=== PATIENT | male | born 1950 | race Caucasian/White ===

== ENCOUNTER → 2016-10-05 | Outpatient (CLI) | payer OTHER ==
[~2016-10-05] MED LIST: ASPI81 PO; ATOR1TAB18 PO; ATOR80TA41 PO; CARV3.125 PO; GLUC750T22 PO; LORTA5 PO; PANT40IN3 PO; PANT40TA3 PO; VITA100017 PO; ZOFR4TAB3 SL
[2016-10-05 09:04] LABS: ALKALINE PHOSPHATASE 50 U/L (45-117); ALT (GPT) 41 U/L (12-78); ANION GAP 5 MEQ/L (5-15); AST (GOT) 21 U/L (15-37); BICARBONATE 28.9 MEQ/L (21.0-32.0); BLOOD UREA NITROGEN 16 MG/DL (7-18); CHLORIDE 105 MEQ/L (98-107); GLOMERULAR FILTRATION RATE 83 ML/MIN (>89); GLUCOSE,FASTING 91 MG/DL (74-99); HDL CHOLESTEROL 52.4 MG/DL (40.0-60.0); LDL CHOLESTEROL 71 MG/DL (0-99); POTASSIUM 4.9 MEQ/L (3.5-5.1); SODIUM (NA) 139 MEQ/L (136-145); TOTAL BILIRUBIN ADULT 0.7 MG/DL (0.2-1.0)
== END ==
LOC: CLAB 08:14
PROVIDERS: ATTEND Internal Medicine Interventional Cardiology
DX: E78.2 Mixed hyperlipidemia (principal); I10 Essential (primary) hypertension; D68.8 Other specified coagulation defects
CPT/HCPCS: 36415; 80053; 80061

== ENCOUNTER 2016-11-18 13:07 | Inpatient (IN) | payer OTHER ==
[2016-11-18] VITALS (14 sets, daily range): BP systolic 77–122; BP diastolic 44–66; PULSE 63–103; RESP 12–18; TEMP 97.4–98.6; O2SAT 92–98
[~2016-11-18] VITALS: Ht 190.5 cm; Wt 102.8 kg
[~2016-11-18 13:07] MED LIST changes: -ATOR1TAB18 PO; -PANT40TA3 PO
[2016-11-18] MEDS ORDERED: PANTOPRAZOLE SODIUM 40 MG VIAL IV PUSH ONE (13:30)
[2016-11-18] MEDS ORDERED: SODIUM CHLOR 0.9% 1000 ML INJ 1,000 ML IV ONE ×3 (13:30→14:15)
[2016-11-18] MEDS ORDERED: ONDANSETRON HCL 4 MG/2 ML VIAL IV ONE (13:30)
[2016-11-18] MEDS ORDERED: PANT40TA3 PO (13:35)
[2016-11-18] MEDS ORDERED: ATOR1TAB18 PO (13:35)
--- NOTE | 2016-11-18 13:37 | PD ---
HPI Chief Complaint: General Weakness Time Seen by Provider: 13:17 Travel History International Travel<30 days: No Contact w/Intl Traveler<30days: No Traveled to known affect area: No History of Present Illness HPI The patient is a 65-year-old male who presents emergency department for nausea, vomiting, generalized weakness since yesterday. The patient did have some nausea yesterday with increasing generalized weakness, then had vomiting this morning. The patient's last episode of vomiting did have some what appeared to be coffee-ground emesis, according to the family. The patient does have a history of similar symptoms in the past secondary to viral infections. The patient also break out in a rash, uric area, and took oral Benadryl prior to arrival. The patient has been evaluated by an revenue enforcement collection agent/ clay house worker in the past for his urticaria, there is no known cause. The patient does complain of lightheadedness, dizziness worse with sitting upright, and generalized weakness. He denies any new congestion, cough, diarrhea, or abdominal pain. The patient did not receive an influenza vaccination this year. He does complain of generalized weakness, but denies any specific myalgias or arthralgias. The patient's primary physician is Dr. Jeramy Kumar. [facility] Past Medical History Cancer: Yes (basal cell from back) Cardiovascular Problems: Yes Chest Pain: Yes (STENT PUT IN AUGUST 2014) Gastrointestinal Disorders: Yes Genitourinary: No Hiatal Hernia: Yes Musculoskeletal: No Neurologic: No Reproductive: No Respiratory: No Past Surgical History Abdominal Surgery: Yes (DOUBLE hernia repair.) Coronary Stent: Yes Joint Replacement: Yes (l elbow 2 plates and mechanical joint 2006) Other Surgery: Yes (bone spurs r elbow; hernia 2002, SPOTS REMOVED FROM SKIN CANCER ) Social History Alcohol Use: No Tobacco Use: No Substance Use: No Allergies-Medications (Allergen,Severity, Reaction): Coded Allergies: Latex (Unverified Allergy, Severe, Anaphylaxis, 11/18/16) Vicodin (Unverified Allergy, Severe, Hives, 11/18/16) Reported Meds & Prescriptions Reported Meds & Active Scripts Active Reported Pantoprazole (Pantoprazole Sodium) 40 Mg Tab 40 Mg PO DAILY Atorvastatin (Atorvastatin Calcium) 80 Mg Tab 80 Mg PO HS Review of Systems Except as stated in HPI: all other systems reviewed are Neg General / Constitutional: No: Fever HENT: Positive: Lightheadedness, No: Congestion Cardiovascular: No: Chest Pain or Discomfort Respiratory: No: Shortness of Breath Gastrointestinal: Positive: Nausea, Vomiting, Other (coffee-ground emesis according to the ), No: Diarrhea, Abdominal Pain Genitourinary: No: Dysuria Musculoskeletal: Positive: Weakness, No: Myalgias, Arthralgias Neurologic: Positive: Weakness, Dizziness, No: Change in Mentation Physical Exam Narrative GENERAL: Awake, alert, pleasant 65-year-old male who appears his stated age and is in no acute respiratory distress. SKIN: Slightly pale appearance to the face. Patient does have blanching urticaria on the lower extremities and back HEAD: Atraumatic. Normocephalic. EYES: Pupils equal and round. No scleral icterus. No injection or drainage. ENT: No nasal bleeding or discharge. Dry mucous membranes. NECK: Trachea midline. No JVD. CARDIOVASCULAR: Regular rate and rhythm. No murmur appreciated. Heart rate in the 90s. RESPIRATORY: No accessory muscle use. Clear to auscultation. Breath sounds equal bilaterally. GASTROINTESTINAL: Abdomen soft, non-tender, nondistended. No rebound tenderness. MUSCULOSKELETAL: No obvious deformities. No clubbing. No cyanosis. No edema. NEUROLOGICAL: Awake and alert. No obvious cranial nerve deficits. Motor grossly within normal limits. Normal speech. Nonfocal. PSYCHIATRIC: Appropriate mood and affect; insight and judgment normal. Data Data Last Documented VS Vital Signs Date Time Temp Pulse Resp B/P Pulse Ox O2 Delivery O2 Flow Rate FiO2 11/18/16 14:11 97.9 80 16 92/57 94 Nasal Cannula 2 Orders Electrocardiogram (11/18/16 13:25) Complete Blood Count With Diff (11/18/16 13:25) Comprehensive Metabolic Panel (11/18/16 13:25) Lactic Acid Sepsis Protocol (11/18/16 13:25) Magnesium (Mg) (11/18/16 13:25) Lipase (11/18/16 13:25) Ckmb (Isoenzyme) Profile (11/18/16 13:25) Troponin I (11/18/16 13:25) Urinalysis - C+S If Indicated (11/18/16 13:25) Influenzae A/B Antigen (11/18/16 13:25) Blood Culture (11/18/16 13:25) Chest, Single Ap (11/18/16 13:25) Blood Glucose (11/18/16 13:25) Ecg Monitoring (11/18/16 13:25) Iv Access Insert/Monitor (11/18/16 13:25) Oximetry (11/18/16 13:25) Oxygen Administration (11/18/16 13:25) Ondansetron Inj (Zofran Inj) (11/18/16 13:30) Sodium Chlor 0.9% 1000 Ml Inj (Ns 1000 M (11/18/16 13:30) Sodium Chlor 0.9% 1000 Ml Inj (Ns 1000 M (11/18/16 13:30) Pantoprazole Inj (Protonix Inj) (11/18/16 13:30) Type And Screen (11/18/16 13:25) CKMB (11/18/16 13:15) CKMB% (11/18/16 13:15) Sodium Chlor 0.9% 1000 Ml Inj (Ns 1000 M (11/18/16 14:15) Diphenhydramine Inj (Benadryl Inj) (11/18/16 14:15) Labs Laboratory Tests Test 11/18/16 13:15 White Blood Count 15.6 TH/MM3 Red Blood Count 6.77 MIL/MM3 Hemoglobin 20.2 GM/DL Hematocrit 60.9 % Mean Corpuscular Volume 89.9 FL Mean Corpuscular Hemoglobin 29.9 PG Mean Corpuscular Hemoglobin 33.2 % Concent Red Cell Distribution Width 13.4 % Platelet Count 253 TH/MM3 Mean Platelet Volume 9.8 FL Neutrophils (%) (Auto) 88.5 % Lymphocytes (%) (Auto) 9.8 % Monocytes (%) (Auto) 1.5 % Eosinophils (%) (Auto) 0.1 % Basophils (%) (Auto) 0.1 % Neutrophils # (Auto) 13.9 TH/MM3 Lymphocytes # (Auto) 1.5 TH/MM3 Monocytes # (Auto) 0.2 TH/MM3 Eosinophils # (Auto) 0.0 TH/MM3 Basophils # (Auto) 0.0 TH/MM3 CBC Comment DIFF FINAL Differential Comment Sodium Level 139 MEQ/L Potassium Level 4.6 MEQ/L Chloride Level 102 MEQ/L Carbon Dioxide Level 21.0 MEQ/L Anion Gap 16 MEQ/L Blood Urea Nitrogen 26 MG/DL Creatinine 3.50 MG/DL Estimat Glomerular Filtration 18 ML/MIN Rate Random Glucose 150 MG/DL Calcium Level 8.7 MG/DL Magnesium Level 2.1 MG/DL Total Bilirubin 1.7 MG/DL Aspartate Amino Transf 22 U/L (AST/SGOT) Alanine Aminotransferase 30 U/L (ALT/SGPT) Alkaline Phosphatase 42 U/L Total Creatine Kinase 185 U/L Troponin I 0.10 NG/ML Total Protein 6.7 GM/DL Albumin 3.2 GM/DL Lipase 85 U/L [facility] Medical Decision Making Medical Screen Exam Complete: Yes Emergency Medical Condition: Yes Medical Record Reviewed: Yes Interpretation(s) EKG reveals normal sinus rhythm with a rate in 96. Low QRS precordial leads. Chest x-ray reveals no acute cardiopulmonary disease Laboratory Tests Test 11/18/16 13:15 White Blood Count 15.6 TH/MM3 Red Blood Count 6.77 MIL/MM3 Hemoglobin 20.2 GM/DL Hematocrit 60.9 % Mean Corpuscular Volume 89.9 FL Mean Corpuscular Hemoglobin 29.9 PG Mean Corpuscular Hemoglobin 33.2 % Concent Red Cell Distribution Width 13.4 % Platelet Count 253 TH/MM3 Mean Platelet Volume 9.8 FL Neutrophils (%) (Auto) 88.5 % Lymphocytes (%) (Auto) 9.8 % Monocytes (%) (Auto) 1.5 % Eosinophils (%) (Auto) 0.1 % Basophils (%) (Auto) 0.1 % Neutrophils # (Auto) 13.9 TH/MM3 Lymphocytes # (Auto) 1.5 TH/MM3 Monocytes # (Auto) 0.2 TH/MM3 Eosinophils # (Auto) 0.0 TH/MM3 Basophils # (Auto) 0.0 TH/MM3 CBC Comment DIFF FINAL Differential Comment Sodium Level 139 MEQ/L Potassium Level 4.6 MEQ/L Chloride Level 102 MEQ/L Carbon Dioxide Level 21.0 MEQ/L Anion Gap 16 MEQ/L Blood Urea Nitrogen 26 MG/DL Creatinine 3.50 MG/DL Estimat Glomerular Filtration 18 ML/MIN Rate Random Glucose 150 MG/DL Calcium Level 8.7 MG/DL Magnesium Level 2.1 MG/DL Total Bilirubin 1.7 MG/DL Aspartate Amino Transf 22 U/L (AST/SGOT) Alanine Aminotransferase 30 U/L (ALT/SGPT) Alkaline Phosphatase 42 U/L Total Creatine Kinase 185 U/L Troponin I 0.10 NG/ML Total Protein 6.7 GM/DL Albumin 3.2 GM/DL Lipase 85 U/L Differential Diagnosis Differential diagnosis includes sepsis, influenza, dehydration, gastritis, peptic ulcer disease, symptomatic anemia, septic shock, acute renal failure, pneumonia. Narrative Course IV was established, labs were drawn and sent, and the patient was placed on cardiac telemetry monitoring and continuous pulse oximetry monitoring. The patient's initial heart rate was in the high 90s, blood pressure had a systolic in the 70s a diastolic in the 40s, therefore, second IV was established and the patient was immediately resuscitated with 2 L of IV fluids. He denies any history of congestive heart failure, does have a history of CAD with stent in place. The patient currently takes Protonix and atorvastatin. Blood cultures and lactic acid were sent to lab. Chest x-ray was obtained. Chest x-ray is unremarkable. Influenza screen was negative. The patient's hemoglobin was elevated, most likely secondary to hemoconcentration. Creatinine was elevated greater in 3.5 with elevated troponin 0.10, most likely secondary to acute renal failure from dehydration. Anion gap is elevated at 16, may be secondary to lactic acidosis and acute renal failure. The patient's blood pressure did improve with 2 L of IV fluid, systolic came up into the 90s. However, patient' s hives were progressing, therefore, was administered 1 more liter of IV fluids , cortisone 100 mg intravenously, and Benadryl 25 mg intravenously. Physician Communication Physician Communication The on-call milieu therapist was paged for admission. Diagnosis Primary Impression: Acute renal failure Qualified Code: N17.9 - Acute renal failure, unspecified acute renal failure type Additional Impressions: Idiopathic urticaria Hypotension Qualified Code: I95.9 - Hypotension, unspecified hypotension type Lactic acidosis Condition: Stable Kwan Mercado MD Nov 18, 2016 13:37
[2016-11-18 13:44] LABS: AUTOMATED NEUTROPHIL # 13.9 TH/MM3 (1.8-7.7); BASOPHIL % 0.1 % (0.0-2.0); EOSINOPHIL % 0.1 % (0.0-4.0); HEMATOCRIT 60.9 % (39.0-51.0); LYMPH % 9.8 % (9.0-44.0); LYMPHOCYTE # 1.5 TH/MM3 (1.0-4.8); MEAN CELL VOLUME 89.9 FL (80.0-100.0); MEAN CORPUSCULAR HEMOGLOBIN 29.9 PG (27.0-34.0); MEAN CORPUSCULAR HGB CONC 33.2 % (32.0-36.0); MONO % 1.5 % (0.0-8.0); NEUT % 88.5 % (16.0-70.0); PLATELET COUNT 253 TH/MM3 (150-450); RED BLOOD COUNT 6.77 MIL/MM3 (4.50-5.90); RED CELL DISTRIBUTION WIDTH 13.4 % (11.6-17.2); WHITE BLOOD COUNT 15.6 TH/MM3 (4.0-11.0)
[2016-11-18 13:47] LABS: HEMO FLAGS DIFF FINAL
[2016-11-18 14:02] LABS: CHLORIDE 102 MEQ/L (98-107); POTASSIUM 4.6 MEQ/L (3.5-5.1); SODIUM (NA) 139 MEQ/L (136-145)
[2016-11-18 14:06] LABS: ANION GAP 16 MEQ/L (5-15); BLOOD UREA NITROGEN 26 MG/DL (7-18); MAGNESIUM 2.1 MG/DL (1.5-2.5)
[2016-11-18 14:09] LABS: ALT (GPT) 30 U/L (12-78); AST (GOT) 22 U/L (15-37); GLOMERULAR FILTRATION RATE 18 ML/MIN (>89)
[2016-11-18 14:11] LABS: TOTAL BILIRUBIN ADULT 1.7 MG/DL (0.2-1.0)
[2016-11-18 14:12] LABS: ALKALINE PHOSPHATASE 42 U/L (45-117); CREATINE KINASE 185 U/L (39-308)
[2016-11-18] MEDS ORDERED: diphenhydrAMINE HCL 50 MG/ML VIAL IV PUSH ONE (14:15)
--- NOTE | 2016-11-18 14:18 | RADHPO ---
EXAM DATE/TIME: 11/18/2016 14:03 [facility] COMPARISON: CHEST SINGLE AP, August 14, 2014, 19:56. INDICATIONS : Fever, weakness. MEDICAL HISTORY : Cardiovascular disease. Hiatal hernia. SURGICAL HISTORY : Hernia repair. Elbow. Coronary stent. ENCOUNTER: Initial ACUITY: 1 day PAIN SCORE: 0/10 LOCATION: chest FINDINGS: A single view of the chest demonstrates the lungs to be symmetrically aerated without evidence of mas s, infiltrate or effusion. The cardiomediastinal contours are unremarkable. Osseous structures are intact. CONCLUSION: No acute cardiopulmonary process. Vazquez Link MD on November 18, 2016 at 14:16 Board Certified Radiologist. This report was verified electronically.
[2016-11-18 14:24] LABS: CKMB 4.9 NG/ML (0.5-3.6)
[2016-11-18] MEDS ORDERED: HYDROCORTISONE SOD SUCCINATE 100 MG VIAL IV PUSH ONE (14:45)
[2016-11-18] MEDS ORDERED: SODIUM CHLOR 0.9% 1000 ML INJ 1,000 ML IV SCH (14:54)
[2016-11-18] MEDS ORDERED: CHLORHEXIDINE GLUCONATE 2 % 1 PACK (2 CLOTHS) TOP PRN (15:00)
[2016-11-18] MEDS ORDERED: SODIUM CHLORIDE 0.9% FLUSH 5 ML FLUSH IV FLUSH PRN (15:00)
[2016-11-18] MEDS ORDERED: MISCELLANEOUS NURSING INFORMATION XX SCH (15:00)
[2016-11-18 15:36] LABS: LACTIC ACID GHOST NOT REPORTABLE
[2016-11-18] MEDS ORDERED: RESP: ALBUTEROL 2.5 MG/IPRATROPIUM 0.5 MG NEB (SCH) INH (16:00)
[2016-11-18] MEDS: FAMOTIDINE 20 MG/2 ML VIAL IV PUSH SCH (16:37)
[2016-11-18 17:14] LABS: BLOOD, URINE NEG (NEG); GLUCOSE,URINE NEG (NEG); KETONE, URINE TRACE mg/dL (NEG); NITRITE,URINE NEG (NEG); PH, URINE 5.5 (5.0-8.5)
[2016-11-18 17:17] LABS: METHOD OF COLLECTION CATH; URINE COLOR YELLOW (YELLW/STRAW)
[2016-11-18 17:19] LABS: MUCUS URINE MOD /lpf (OCC); RBC, URINE 0-3 /hpf (0-3)
[2016-11-18 17:20] LABS: COMMENT (UR) CATH-CULTURE IND; CULTURE IF INDICATED CATH CULTURE IND; TRANSITIONAL EPI CELLS, URINE 0-5 /hpf
[2016-11-18] MEDS ORDERED: ONDANSETRON HCL 4 MG/2 ML VIAL IV PUSH PRN (19:00)
[2016-11-18] MEDS ORDERED: RESP: ALBUTEROL 2.5 MG/3 ML NEB (PRN) NEB (19:00)
--- NOTE | 2016-11-18 19:00 | HHI.HP ---
HPI Service Critical Care Medicine Primary Care Physician Jeramy Kumar MD Admission Diagnosis acute renal failure, lactic acidosis, idiopathic urticaria Diagnosis: Travel History International Travel<30 Days: No Contact w/Intl Traveler <30 Da: No Traveled to Known Affected Are: No History of Present Illness 65 yo male who presents with one day history of vomiting. He states that he ate a [employer] sandwich with [place] at around noon on 11/17/16. At around 18:00 he began to feel ill and had 2 loose stools. He then had multiple episodes of vomiting too numerous to count throughout the evening. He could not keep anything down. He said some of the vomit looked dark ??coffee ground. No melena or BRBPR. He did have some abdominal cramping but no consistent abdominal pain. He has also developed urticaria on his chest, arms, legs. He states he has gotten this before when he had viral illnesses and that he has seen an wheat cleaner who told him it is idiopathic. He denies any throat tightness or SOB. He was hypotensive upon arrival to the ED with blood pressure in the 70s over 40s. Heart rate is in the 80s. He appeared clinically dry and labs supported significant dehydration with a hemoglobin of 20.2, creatinine of 3.5. Lactic acid is 4.6. 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 Past Surgical History EGD and colonoscopy -- he states that he has previously had esophagitis and esophageal ulcers but that an EGD 6 months ago done at [place] demonstrated no abnormalities. He has been on pantoprazole Left inguinal hernia repair Umbilical hernia repair Left elbow ORIF and arthroplasty Melanoma resection 4 years ago Resection of basal cell and squamous cell skin cancers Cardiac catheterization with coronary stent 2 years ago Reported Medications 40 mg daily Atorvastatin 80 mg by mouth daily Aspirin 81 mg daily Carvedilol unknown dose Family History Father is still living at age 96 and is under hospice care. He had an MA at age 95. He states his mother lived to age 83 and "didn't take care of herself" (tobacco , EtOH, prescription drug abuse) Social History Lifetime nonsmoker He states he drinks alcohol rarely No illicit drug use . 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 His is CNO of [facility]. Physical Exam Vital Signs Vital Signs Date Time Temp Pulse Resp B/P Pulse Ox O2 Delivery O2 Flow Rate FiO2 11/18/16 17:19 82 18 110/66 97 Nasal Cannula 2 11/18/16 15:35 85 16 105/59 94 Nasal Cannula 2 11/18/16 14:33 98 Nasal Cannula 2 11/18/16 14:32 88 18 101/62 98 Nasal Cannula 2 11/18/16 14:11 97.9 80 16 92/57 94 Nasal Cannula 2 11/18/16 13:37 98 2 11/18/16 13:32 97 Room Air 11/18/16 13:25 97.4 103 16 77/44 97 Physical Exam Temp 98.5 blood pressure 120/59 pulse 83 sats 92% on 2 L nasal cannula GENERAL: Well-nourished, well-developed patient who is alert and talkative sitting up in [facility] bed. SKIN: Warm and dry. There are blanching urticaria on his neck, chest, arms, thighs bilaterally. No petechiae. HEAD: Atraumatic. Normocephalic. EYES: Pupils equal and round, 2 mm reactive. No scleral icterus. No injection or drainage. No meningismus ENT: No nasal bleeding or discharge. Mucous membranes dry. There is no pharyngeal erythema. Uvula appears normal. NECK: Trachea midline. No JVD. CARDIOVASCULAR: Regular rate and rhythm, sinus rhythm on the monitor. No murmurs rubs or gallops. RESPIRATORY: No accessory muscle use. Clear to auscultation. Breath sounds equal bilaterally. On 2 L nasal cannula. GASTROINTESTINAL: Abdomen soft, non-tender, nondistended. Bowel sounds present. : Mendoza in place with light christie urine output. MUSCULOSKELETAL: Extremities without clubbing, cyanosis, or edema. No obvious deformities. NEUROLOGICAL: Awake and alert. No obvious cranial nerve deficits. Motor grossly within normal limits. . Normal speech. Oriented 4 Laboratory Laboratory Tests Test 11/18/16 11/18/16 11/18/16 13:15 16:35 17:09 White Blood Count 15.6 Red Blood Count 6.77 Hemoglobin 20.2 Hematocrit 60.9 Mean Corpuscular Volume 89.9 Mean Corpuscular Hemoglobin 29.9 Mean Corpuscular Hemoglobin 33.2 Concent Red Cell Distribution Width 13.4 Platelet Count 253 Mean Platelet Volume 9.8 Neutrophils (%) (Auto) 88.5 Lymphocytes (%) (Auto) 9.8 Monocytes (%) (Auto) 1.5 Eosinophils (%) (Auto) 0.1 Basophils (%) (Auto) 0.1 Neutrophils # (Auto) 13.9 Lymphocytes # (Auto) 1.5 Monocytes # (Auto) 0.2 Eosinophils # (Auto) 0.0 Basophils # (Auto) 0.0 CBC Comment DIFF FINAL Differential Comment Sodium Level 139 Potassium Level 4.6 Chloride Level 102 Carbon Dioxide Level 21.0 Anion Gap 16 Blood Urea Nitrogen 26 Creatinine 3.50 Estimat Glomerular Filtration 18 Rate Random Glucose 150 Lactic Acid Level 4.6 2.3 Calcium Level 8.7 Magnesium Level 2.1 Total Bilirubin 1.7 Aspartate Amino Transf 22 (AST/SGOT) Alanine Aminotransferase 30 (ALT/SGPT) Alkaline Phosphatase 42 Total Creatine Kinase 185 Creatine Kinase MB 4.9 Troponin I 0.10 Total Protein 6.7 Albumin 3.2 Lipase 85 Blood Type A POSITIVE Antibody Screen NEGATIVE Urine Collection Type CATH Urine Color YELLOW Urine Turbidity CLEAR Urine pH 5.5 Urine Specific [place] 1.023 Urine Protein 100 Urine Glucose (UA) NEG Urine Ketones TRACE Urine Occult Blood NEG Urine Nitrite NEG Urine Bilirubin NEG Urine Leukocyte Esterase NEG Urine RBC 0-3 Urine WBC 9-14 Urine Transitional Epithelial 0-5 Cells Urine Hyaline Casts 10-14 Urine Mucus MOD Microscopic Urinalysis Comment CATH-CULTURE IND Urine Collection Time 17:09 Date/Time Procedure Status Source Growth 11/18/16 17:09 Urine Culture Received Urine Catheterized Urine Pending 11/18/16 13:54 Influenza Types A,B Antigen (SARAI) - Final Complete Nasal Aspirate NEGATIVE FOR FLU A AND B ANTIGEN.... 11/18/16 13:51 Aerobic Blood Culture Received Blood Peripheral Pending 11/18/16 13:51 Anaerobic Blood Culture Received Blood Peripheral Pending Result Diagram: 11/18/16 1315 11/18/16 1315 Assessment and Plan Assessment and Plan NEURO: Ofirmev as needed for pain RESP: Nasal cannula wean as tolerated. CV: Hypovolemic shock secondary to severe dehydration due to vomiting and diarrhea. Lactic acidemia Hyperlipidemia Received 3 L normal saline in the emergency department. He still appears clinically dry with what was initially marginal urine output. Bolused with 2 L of LR and urine output improved and is about 50 mL per hour. MAP is >65. Trend lactic acid. Troponin elevated to 0.10 in setting of hypovolemia and renal failure. He has no chestpain or SOB so doubtful that this represents true ischemia. Hold off on ASA at this time as patient had recurrent vomiting with some coffee ground appearance and may represent Diana Ko tear so would avoid antiplatelet at this time. Also not candidate for betablocker due to hypotension. EKG NSR without ST/T wave changes. Started on stress dose hydrocortisone given hypotension/urticaria, will begin taper once resuscitated. Resume statin when he can tolerate po. GI: Vomiting and diarrhea - likely gastroenteritis, ?secondary to foodborne illness. NPO and advance to clear liquids when feeling better Zofran as needed for nausea FEN/RENAL: Acute kidney injury Sent FENA which is consistent with prerenal picture. Aggressive fluid resuscitation as per above with bolus fluids until achieving target urine output. LR at 150 L per hour. Counseled patient he could develop ATN, but at this point hopeful that he will respond to IVF. HUS can be seen with foodborne illness but normal platelets, and hemoconcentrated, so if he is responding to IVF then this would be less likely. Mendoza to monitor intake and output q1hr. Follow up BMP. ID: Leukocytosis may represent leukemoid reaction secondary to dehydration and viral illness. ?UTI U/a with 9-14 WBC. Rocephin 1 gram IV daily and followup urine culture. Vomiting and diarrhea may be viral versus foodborne Followup blood cultures. Influenza screen negative ALLERGY: Urticaria, with h/o viral induced urticaria Benadryl 25 IV every 6 hours, Pepcid 20 mg IV every 12 hours, DuoNeb every 6 hours x24 hours and albuterol every 2 hours when necessary. Hydrocortisone 100 mg IV every 8 hours HEME: Monitor CBC ENDO: Acute Mild hyperglycemia, likely secondary to acute illness. Low-dose insulin sliding scale if glucose >185. PROPH: SCDs for DVT prophylaxis. Hold on pharmacologic DVT prophylaxis at this time given the concern for coffee grounds emesis and see how he does clinically first. Protonix 40 mg IV daily for a history of GERD on home PPI. Is on H2 delmy due to urticaria. ACCESS: PIV providing adequate access at this time. Will place central line if needed Patient and his were updated at bedside. Questions answered. Medical care time 45 minutes exclusive of separately billable procedures. Kalli Coleman MD Nov 18, 2016 19:00
[2016-11-18 19:08] LABS: BICARBONATE 20.3 MEQ/L (21.0-32.0); CALCIUM-PROTEIN CORRECTED 8.2 MG/DL (8.5-10.1); POTASSIUM 4.5 MEQ/L (3.5-5.1); TOTAL BILIRUBIN ADULT 1.1 MG/DL (0.2-1.0)
[2016-11-18] MEDS: diphenhydrAMINE HCL 50 MG/ML VIAL IV PUSH SCH (19:32)
[2016-11-18] MEDS: SODIUM CHLORIDE 0.9% FLUSH 5 ML FLUSH IV FLUSH SCH (19:33)
[2016-11-18] MEDS ORDERED: LACTATED RINGER'S 1000 ML INJ 1,000 ML IV ONE (20:30)
[2016-11-18] MEDS: RESP: ALBUTEROL 2.5 MG/IPRATROPIUM 0.5 MG NEB (SCH) NEB (20:41)
[2016-11-18] MEDS: HYDROCORTISONE SOD SUCCINATE 100 MG VIAL IV PUSH SCH (21:56)
[2016-11-18] MEDS: LACTATED RINGER'S 1000 ML INJ 1,000 ML IV SCH (21:56)
[2016-11-19] VITALS (18 sets, daily range): BP systolic 93–134; BP diastolic 50–73; PULSE 53–85; RESP 12–15; TEMP 97.8–98.8; O2SAT 91–97
[2016-11-19] MEDS: diphenhydrAMINE HCL 50 MG/ML VIAL IV PUSH SCH ×4 (02:56→21:32)
[2016-11-19] MEDS: RESP: ALBUTEROL 2.5 MG/IPRATROPIUM 0.5 MG NEB (SCH) NEB ×2 (03:17→09:18)
[2016-11-19] MEDS: CHLORHEXIDINE GLUCONATE 2 % 1 PACK (2 CLOTHS) TOP SCH (04:00)
[2016-11-19] MEDS: LACTATED RINGER'S 1000 ML INJ 1,000 ML IV SCH ×3 (04:04→21:36)
[2016-11-19] MEDS: FAMOTIDINE 20 MG/2 ML VIAL IV PUSH SCH (04:04)
[2016-11-19 04:39] LABS: AUTOMATED NEUTROPHIL # 6.3 TH/MM3 (1.8-7.7); BASOPHIL % 0.1 % (0.0-2.0); EOSINOPHIL % 0.2 % (0.0-4.0); HEMATOCRIT 45.6 % (39.0-51.0); HEMO FLAGS DIFF FINAL; LYMPH % 19.6 % (9.0-44.0); LYMPHOCYTE # 1.7 TH/MM3 (1.0-4.8); MEAN CELL VOLUME 89.3 FL (80.0-100.0); MEAN CORPUSCULAR HEMOGLOBIN 30.8 PG (27.0-34.0); MEAN CORPUSCULAR HGB CONC 34.4 % (32.0-36.0); MONO % 6.2 % (0.0-8.0); NEUT % 73.9 % (16.0-70.0); PLATELET COUNT 149 TH/MM3 (150-450); RED BLOOD COUNT 5.11 MIL/MM3 (4.50-5.90); RED CELL DISTRIBUTION WIDTH 13.8 % (11.6-17.2); WHITE BLOOD COUNT 8.6 TH/MM3 (4.0-11.0)
[2016-11-19 04:50] LABS: BICARBONATE 22.9 MEQ/L (21.0-32.0); CALCIUM-PROTEIN CORRECTED 8.3 MG/DL (8.5-10.1); POTASSIUM 4.6 MEQ/L (3.5-5.1); TOTAL BILIRUBIN ADULT 0.7 MG/DL (0.2-1.0)
[2016-11-19] MEDS: HYDROCORTISONE SOD SUCCINATE 100 MG VIAL IV PUSH SCH ×3 (05:59→21:33)
[2016-11-19] MEDS: SODIUM CHLORIDE 0.9% FLUSH 5 ML FLUSH IV FLUSH SCH ×2 (07:27→21:33)
[2016-11-19] MEDS ORDERED: ACETAMINOPHEN 1000 MG/100 ML VIAL IV PRN (08:00)
[2016-11-19] MEDS ORDERED: CALCIUM GLUCONATE INJ 1 GM in SODIUM CHLORIDE 0.9% INJ 100 ML IV ONE (09:00)
--- NOTE | 2016-11-19 09:00 | HHI.CCPN ---
Subjective Remarks/Hospital Course 65 yo male who presents with one day history of vomiting. He states that he ate a [employer] sandwich with dudley at around noon on 11/17/16. At around 18:00 he began to feel ill and had 2 loose stools. He then had multiple episodes of vomiting too numerous to count throughout the evening. He could not keep anything down. He said some of the vomit looked dark ??coffee ground. No melena or BRBPR. He did have some abdominal cramping but no consistent abdominal pain. He has also developed urticaria on his chest, arms, legs. He states he has gotten this before when he had viral illnesses and that he has seen an jig worker who told him it is idiopathic. He denies any throat tightness or SOB. He was hypotensive upon arrival to the ED with blood pressure in the 70s over 40s. Heart rate is in the 80s. He appeared clinically dry and labs supported significant dehydration with a hemoglobin of 20.2, 11/19 Patient is feeling better on 3L oxygen with good sats. Afebrile. Renal function improving with Cr: 2.1 from 3.5 on arrival. Leukocytosis resolved with WBC 8.6 from 15. Objective Vital Signs Date Time Temp Pulse Resp B/P Pulse Ox O2 Delivery O2 Flow Rate FiO2 11/19/16 08:00 97.8 59 12 97/53 97 11/18/16 20:42 Nasal Cannula 3.00 Intake and Output 11/18/16 11/18/16 11/19/16 08:00 16:00 00:00 Intake Total 3000 ml 3289 ml Output Total 360 ml Balance 3000 ml 2929 ml Result Diagram: 11/19/16 0407 11/19/16 0407 Other Results Laboratory Tests Test 11/18/16 11/18/16 11/18/16 11/18/16 13:15 16:35 17:09 18:30 White Blood Count 15.6 TH/MM3 Red Blood Count 6.77 MIL/MM3 Hemoglobin 20.2 GM/DL Hematocrit 60.9 % Mean Corpuscular Volume 89.9 FL Mean Corpuscular Hemoglobin 29.9 PG Mean Corpuscular Hemoglobin 33.2 % Concent Red Cell Distribution Width 13.4 % Platelet Count 253 TH/MM3 Mean Platelet Volume 9.8 FL Neutrophils (%) (Auto) 88.5 % Lymphocytes (%) (Auto) 9.8 % Monocytes (%) (Auto) 1.5 % Eosinophils (%) (Auto) 0.1 % Basophils (%) (Auto) 0.1 % Neutrophils # (Auto) 13.9 TH/MM3 Lymphocytes # (Auto) 1.5 TH/MM3 Monocytes # (Auto) 0.2 TH/MM3 Eosinophils # (Auto) 0.0 TH/MM3 Basophils # (Auto) 0.0 TH/MM3 CBC Comment DIFF FINAL Differential Comment Sodium Level 139 MEQ/L 139 MEQ/L Potassium Level 4.6 MEQ/L 4.5 MEQ/L Chloride Level 102 MEQ/L 108 MEQ/L Carbon Dioxide Level 21.0 MEQ/L 20.3 MEQ/L Anion Gap 16 MEQ/L 11 MEQ/L Blood Urea Nitrogen 26 MG/DL 30 MG/DL Creatinine 3.50 MG/DL 2.69 MG/DL Estimat Glomerular Filtration 18 ML/MIN 24 ML/MIN Rate Random Glucose 150 MG/DL 147 MG/DL Lactic Acid Level 4.6 mmol/L 2.3 mmol/L 2.3 mmol/L Calcium Level 8.7 MG/DL 7.1 MG/DL Magnesium Level 2.1 MG/DL Total Bilirubin 1.7 MG/DL 1.1 MG/DL Aspartate Amino Transf 22 U/L 18 U/L (AST/SGOT) Alanine Aminotransferase 30 U/L 25 U/L (ALT/SGPT) Alkaline Phosphatase 42 U/L 31 U/L Total Creatine Kinase 185 U/L Creatine Kinase MB 4.9 NG/ML Troponin I 0.10 NG/ML 0.50 NG/ML Total Protein 6.7 GM/DL 5.1 GM/DL Albumin 3.2 GM/DL 2.5 GM/DL Lipase 85 U/L Blood Type A POSITIVE Antibody Screen NEGATIVE Urine Collection Type CATH Urine Color YELLOW Urine Turbidity CLEAR Urine pH 5.5 Urine Specific [place] 1.023 Urine Protein 100 mg/dL Urine Glucose (UA) NEG mg/dL Urine Ketones TRACE mg/dL Urine Occult Blood NEG Urine Nitrite NEG Urine Bilirubin NEG Urine Leukocyte Esterase NEG Urine RBC 0-3 /hpf Urine WBC 9-14 /hpf Urine Transitional Epithelial 0-5 /hpf Cells Urine Hyaline Casts 10-14 /lpf Urine Mucus MOD /lpf Microscopic Urinalysis Comment CATH-CULTURE IND Urine Collection Time 17:09 Protein Corrected Calcium 8.2 MG/DL Phosphorus Level 3.5 MG/DL Test 11/18/16 11/18/16 11/18/16 11/19/16 19:45 21:10 23:48 04:07 Nasal Screen MRSA (PCR) NEGATIVE Urine Random Creatinine 276.5 MG/DL Urine Random Sodium LESS THAN 5 MEQ/L Lactic Acid Level 1.9 mmol/L 2.3 mmol/L White Blood Count 8.6 TH/MM3 Red Blood Count 5.11 MIL/MM3 Hemoglobin 15.7 GM/DL Hematocrit 45.6 % Mean Corpuscular Volume 89.3 FL Mean Corpuscular Hemoglobin 30.8 PG Mean Corpuscular Hemoglobin 34.4 % Concent Red Cell Distribution Width 13.8 % Platelet Count 149 TH/MM3 Mean Platelet Volume 8.8 FL Neutrophils (%) (Auto) 73.9 % Lymphocytes (%) (Auto) 19.6 % Monocytes (%) (Auto) 6.2 % Eosinophils (%) (Auto) 0.2 % Basophils (%) (Auto) 0.1 % Neutrophils # (Auto) 6.3 TH/MM3 Lymphocytes # (Auto) 1.7 TH/MM3 Monocytes # (Auto) 0.5 TH/MM3 Eosinophils # (Auto) 0.0 TH/MM3 Basophils # (Auto) 0.0 TH/MM3 CBC Comment DIFF FINAL Differential Comment Sodium Level 143 MEQ/L Potassium Level 4.6 MEQ/L Chloride Level 111 MEQ/L Carbon Dioxide Level 22.9 MEQ/L Anion Gap 9 MEQ/L Blood Urea Nitrogen 32 MG/DL Creatinine 2.10 MG/DL Estimat Glomerular Filtration 32 ML/MIN Rate Random Glucose 128 MG/DL Calcium Level 7.3 MG/DL Protein Corrected Calcium 8.3 MG/DL Total Bilirubin 0.7 MG/DL Aspartate Amino Transf 19 U/L (AST/SGOT) Alanine Aminotransferase 22 U/L (ALT/SGPT) Alkaline Phosphatase 29 U/L Total Protein 5.2 GM/DL Albumin 2.4 GM/DL Imaging Last Impressions Abdomen/Pelvis CT 11/19/16 0000 Signed Impressions: Service Date/Time: Saturday, November 19, 2016 09:56 - CONCLUSION: 1. Small bilateral pleural effusions now noted new from the prior study. 2. Mildly nonspecific, nonobstructive bowel gas pattern which may represent a mild ileus. No oral or intravenous contrast was given. 3. Stable small cyst in the right lobe of the liver. 4. The gallbladder appears unremarkable. Marcos Lindsay MD Chest X-Ray 11/18/16 1325 Signed Impressions: Service Date/Time: November 14:03 - CONCLUSION: No acute cardiopulmonary process. Vazquez Link MD Objective Remarks GENERAL: Patient is 65yo lying in bed in no acute resp distress SKIN: Warm and dry. HEAD: Normocephalic. EYES: No scleral icterus. No injection or drainage. NECK: Supple, trachea midline. No JVD or lymphadenopathy. CARDIOVASCULAR: Regular rate and rhythm without murmurs, gallops, or rubs. RESPIRATORY: Breath sounds equal bilaterally. No accessory muscle use. GASTROINTESTINAL: Abdomen soft, non-tender, nondistended. MUSCULOSKELETAL: No cyanosis, or edema. Neuro: Awake and alert. A/P Assessment and Plan NEURO: Awake and alert. Monitor neuro status and avoid sedatives. RESP: Continue with oxygen keep sat >92% CV: s/p Hypovolemic shock secondary to severe dehydration due to vomiting and diarrhea. Lactic acidemia-improving Hyperlipidemia Mild elevated troponin Monitor HR and BP keep MAP>65mmHg Serial lactic acid monitoring Monitor troponin, check 2D echo to eval LV function. Cards- Dr. Mcdermott Received 3 L normal saline in the emergency department. Given additional 2 L boluses of LR and urine output improved Troponin elevated to 0.10 in setting of hypovolemia and renal failure. He has no chestpain or SOB so doubtful that this represents true ischemia. Hold off on ASA at this time as patient had recurrent vomiting with some coffee ground appearance and may represent Diana Ko tear so would avoid antiplatelet at this time. EKG NSR without ST/T wave changes. On stress dose hydrocortisone given hypotension/urticaria- HC 100mg IV Q8 GI: Vomiting and diarrhea - likely gastroenteritis, ?secondary to foodborne illness. clear liquids advace as suhail to heart healthy diet Zofran as needed for nausea CT abdomen/pelvis wo contrast: Mildly nonspecific, nonobstructive bowel gas pattern which may represent a mild ileus. Stable small cyst in the right lobe of the liver. The gallbladder appears unremarkable. Patient and stated that he had EGD/colonoscopy approx 6 months ago which were normal. FEN/RENAL: Acute kidney injury- improving FENA which is consistent with prerenal picture. Aggressive fluid resuscitation as per above Monitor renal function, I/O's, avoid nephrotoxins Cr: 2.1 from 3.5 ID: Leukocytosis - resolved ?UTI U/a with 9-14 WBC. Rocephin 1 gram IV daily and followup urine culture. Vomiting and diarrhea may be viral versus foodborne Followup blood cultures. Influenza screen negative ALLERGY: Urticaria, with h/o viral induced urticaria Benadryl 25 IV every 6 hours, Pepcid 20 mg IV every 12 hours, DuoNeb every 6 hours x24 hours and albuterol every 2 hours when necessary. Hydrocortisone 100 mg IV every 8 hours HEME: Monitor CBC ENDO: Acute Mild hyperglycemia, likely secondary to acute illness. Low-dose insulin sliding scale if glucose >185. PROPH: SCDs for DVT prophylaxis. Hold on pharmacologic DVT prophylaxis at this time given the concern for coffee grounds emesis. Protonix 40 mg IV daily for a history of GERD on home PPI. ACCESS: PIV providing adequate access at this time. Patient and his were updated at bedside. Questions answered. Level 3 Ezequiel Dill MD Nov 19, 2016 09:00
[2016-11-19] MEDS: cefTRIAXone INJ 1,000 MG in SODIUM CHLORIDE 0.9% INJ 100 ML IV SCH (09:21)
[2016-11-19] MEDS: PANTOPRAZOLE SODIUM 40 MG VIAL IV PUSH SCH (09:21)
--- NOTE | 2016-11-19 10:33 | RADRPT ---
EXAM DATE/TIME: 11/19/2016 09:56 [facility] COMPARISON: CT ABDOMEN & PELVIS W CONTRAST, April 23, 2016, 9:55. INDICATIONS : Abdomen pain, vomiting, lactic acidemia. ORAL CONTRAST: No oral contrast ingested. RADIATION DOSE: 13.49 CTDIvol (mGy) MEDICAL HISTORY : Renal failure, acute. Basal cell removed SURGICAL HISTORY : Cardiac stent, double hernia repair. ENCOUNTER: Initial ACUITY: 1 day PAIN SCALE: 4/10 LOCATION: abdomen TECHNIQUE: Volumetric scanning of the abdomen and pelvis was performed. Using automated exposure control and ad justment of the mA and/or kV according to patient size, radiation dose was kept as low as reasonably achievable to obtain optimal diagnostic quality images. FINDINGS: LOWER LUNGS: There are small bilateral pleural effusions. There is patchy opacity in both posterior lung bases. LIVER: Homogeneous density with a stable small cyst in the right lobe of the liver. There is no dilation of the biliary tree. No calcified gallstones. SPLEEN: Normal size without lesion. PANCREAS: Within normal limits. KIDNEYS: Normal in size and shape. There is no mass, stone, or hydronephrosis. ADRENAL GLANDS: Within normal limits. VASCULAR: There is no aortic aneurysm. BOWEL/MESENTERY: There are several loops of nondilated air containing small bowel. Gas and stool is noted segmentally in the colon. No oral contrast was given to sensitivity. There is no free intraperitoneal air or flui d. ABDOMINAL WALL: Within normal limits. RETROPERITONEUM: There is no lymphadenopathy. BLADDER: A Mendoza catheter is now present in the bladder with air fluid level.. REPRODUCTIVE: Within normal limits. INGUINAL: There is no lymphadenopathy or hernia. MUSCULOSKELETAL: Within normal limits for patient age. CONCLUSION: 1. Small bilateral pleural effusions now noted new from the prior study. 2. Mildly nonspecific, nonobstructive bowel gas pattern which may represent a mild ileus. No oral or intravenous contrast was given. 3. Stable small cyst in the right lobe of the liver. 4. The gallbladder appears unremarkable. Marcos Lindsay MD on November 19, 2016 at 10:29 Board Certified Radiologist. This report was verified electronically.
[2016-11-19] MEDS ORDERED: ASPIRIN EC 325 MG TABEC PO ONE (14:00)
--- NOTE | 2016-11-19 16:19 | MB ---
cc: CUATE ORTIZ DO DATE OF CONSULTATION: 11/19/2016 REASON FOR CONSULTATION: Elevation of troponins. PRIMARY MANAGER DATA WAREHOUSE: Dr. Leeanne Gonzalez. HISTORY OF PRESENT ILLNESS Zheng Anthony is a pleasant 65-year-old male who originally presented to [facility] on November 18, 2016 after having multiple episodes of vomiting, diarrhea and near syncope. He states that he ate at [employer] around noon on November 17, 2016. Afterwards he did not feel well throughout the rest of the afternoon. At about 06:00 p.m., he began feeling ill and he had two lose bowel movements that were all water. He started having multiple episodes of vomiting. He states that every half-hour to 45 minutes he would vomit more. At that point, he could keep nothing down and he was afraid he was getting dehydrated so he tried to drink some water but then would vomit up the water. While vomiting up the water, he said that it started coming back dark in color like coffee. He denies melena or bright red blood per rectum. He did have some abdominal cramping. He denies chest pain or shortness of breath during the episode. At one point, he attempted to get up and started feeling lightheaded and caught himself from passing out. On arrival to the emergency room, he was found to have a blood pressure of 70/40 with a heart rate of 80. Lab work was done, which showed a lactic acid of 4.6 and a creatinine of 3.5. PAST MEDICAL HISTORY: 1. Coronary artery disease. 2. Gastroesophageal reflux disease (GERD). 3. Gastritis. 4. 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 PAST SURGICAL HISTORY: 1. Cardiac catheterization (August 15, 2014) with no significant disease throughout the left main, LAD, diagonal, left circumflex. The OM1 is large vessel with a 30% stenosis of the proximal portion. RCA and PDA without significant disease. Posterolateral branch was totally occluded in the midportion status post Resolute drug-eluting stent (2.25 x 14). 2. EGD and colonoscopy around six months ago per the patient. 3. Left inguinal hernia repair. 4. Umbilical hernia repair 5. Left elbow open reduction internal fixation and arthroplasty 7. Melanoma resection (2012). 8. Resection of basal cell and squamous cell skin cancer. ALLERGIES: 1. LATEX. 2. VICODIN. MEDICATIONS: 1. Lipitor 80 milligrams at night. 2. Protonix 40 milligrams daily. 3. Coreg, unknown dose. FAMILY HISTORY: Father still living at the age of 96 and is under hospice care. He had an NV at the age of 89. Mother lived until age of 83. SOCIAL HISTORY: Lifetime nonsmoker. States he drinks alcohol rarely. No illicit drug use. 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 PHYSICAL EXAMINATION: VITAL SIGNS: Temperature 97.8, heart rate 66, blood pressure 134/65, respirations 14, pulse ox 95% on 3 liters. GENERAL: In general the patient appears well and in no acute distress, alert, awake and oriented x3. HEAD, EYES, EARS, NOSE, THROAT: Extraocular muscles intact. Mucous membranes moist. NECK: The neck is supple. No JVD at 45 degrees. No carotid bruits heard bilaterally. Carotid upstroke is brisk in nature. HEART: Heart is regular rate and rhythm. Positive first and second heart sounds with no murmurs, gallops or rubs. LUNGS: Clear to auscultation bilaterally. No wheezes, rales or rhonchi. ABDOMEN: The abdomen is soft, nontender and nondistended. No organomegaly noted. EXTREMITIES: Show no clubbing, cyanosis or edema. Femoral and distal pulses intact bilaterally. NEUROLOGIC: No focal deficits. SKIN: Warm, dry and intact. OSTEOPATHIC: Osteopathically, no kyphoscoliosis, lordosis or paraspinal tender points. LABORATORY FINDINGS: Hemoglobin 15.7, hematocrit 45.6, platelets 149,000. Potassium 4.6, BUN 32, creatinine 2.1, lactic acid 4.6 decreasing to 3.1. Troponin 0.1 increasing to 0.69. EKGS: Electrocardiogram (November 18, 2016 at 1315): Sinus rhythm, right axis deviation, low voltage QRS in the precordial leads. No acute ST-T wave changes. IMPRESSION: 1. Elevated troponin most likely type 2 in nature due to hypovolemic shock. 2. Hypovolemic shock secondary to severe dehydration due to vomiting and diarrhea. 3. Vomiting and diarrhea possibly gastroenteritis secondary to food-borne illness. 4. Lactic acidosis. 5. Hyperlipidemia 6. History of coronary artery disease as above. 7. Acute kidney injury. 8. Pre-syncope due to hypovolemic shock. RECOMMENDATIONS: 1. Zheng's elevated troponin is most likely secondary to his hypovolemic shock. 2. Continue with serial lactate monitoring, IV fluids and watch urine output. 3. Check a 2-D echocardiogram to look at his overall left ventricular function, cardiac structure and possible valvulopathies. 4. Once through acute illness including his acute kidney injury, as well as making sure hemoglobin is stable as there was a possible concern of GI bleed, we will further discussion with him consideration of ischemic evaluation, whether that be medical management, stress testing or possible cardiac catheterization. Thank you for allowing me to see Zheng Anthony. If there are any questions, please do not hesitate to call. Cuate Ortiz DO VGP/JCC /3:20 PM /4:03 PM
--- NOTE | 2016-11-19 17:02 | EKG ---
Date Performed: 11/18/2016 Time Performed: 13:15:34 PTAGE: 65 years EKG: Sinus rhythm Left axis deviation Low QRS voltages in precordial leads Compared to prior tracing no significant ch lulu Abnormal ECG PREVIOUS TRACING : 04/24/2016 21.12 DOCTOR: Kamron Gutiérrez Interpretating Date/Time 11/19/2016 16:56:19
--- NOTE | 2016-11-19 19:02 | EC ---
Study Study Date:11/19/2016 STUDY CONCLUSIONS SUMMARY - Left ventricle: The cavity size was normal. Wall thickness was increased in a pattern of mild LVH. Systolic function was normal. The estimated ejection fraction was in the range of 55% to 60%. Left ventricular diastolic function parameters were normal. - Aortic valve: Valve area: 2.23cm^2(VTI). Valve area: 2.17cm^2 (Vmax). If LV function is below 40, please consider prescribing an ACEI or ARB or document rationale for non-use. PROCEDURE DATA STUDY STATUS: Elective. Procedure: Transthoracic echocardiography. Image quality was good. Scanning was performed from the parasternal, apical, and subcostal acoustic windows. Study completion: The patient tolerated the procedure well. Transthoracic echocardiography. M-mode, complete 2D, complete spectral Doppler, and color Doppler. Height: Height: 75in. Weight: Weight: 204.6lb. Body mass index: BMI: 25.6kg/m^2. Body surface area: BSA: 2.22m^2. Patient status: Inpatient. CARDIAC ANATOMY LEFT VENTRICLE: The cavity size was normal. Wall thickness was increased in a pattern of mild LVH. Systolic function was normal. The estimated ejection fraction was in the range of 55% to 60%. Left ventricular diastolic function parameters were normal. AORTIC VALVE: The valve appears to be grossly normal. Doppler: There was no stenosis. No significant regurgitation. Valve area: 2.23cm^2(VTI). Indexed valve area: 1cm^2/m^2 (VTI). Valve area: 2.17cm^2 (Vmax). Indexed valve area: 0.98cm^2/m^2 (Vmax). Mean gradient: 3mm Hg (S). MITRAL VALVE: The valve appears to be grossly normal. Doppler: There was no evidence for stenosis. Trace regurgitation. LEFT ATRIUM: The atrium was normal in size. RIGHT VENTRICLE: The cavity size was normal. Systolic function was normal. PULMONIC VALVE: Not visualized. TRICUSPID VALVE: The valve appears to be grossly normal. Doppler: There was no evidence for stenosis. Trace to mild regurgitation. Patient weight: 204.6lb _Ejection fraction:_ 65-75% _Fractional shortening:_ 32% up to 5Kg 5-11.5Kg 11.6-22.9Kg 23-45Kg 45-57Kg Aortic Root 7-13 <17 13-22 17-27 17-27 LA diam 6-13 <23 24-38 33-47 37-40 RVID 10-17 7-15 7-15 7-18 8-17 LVIDd 12-22 <32 24-38 33-47 37-40 LVPW 2-4 3-6 5-7 6-8 7-8 IVS 2-4 3-6 5-7 6-8 7-8 BASIC MEASUREMENTS ADULT NORMAL Left ventricle LV internal dimension, ED, chordal 45.2 mm 43-52 level, PLAX LV internal dimension, ES, chordal 33.8 mm 23-38 level, PLAX Fractional shortening, chordal level, *25 % >29 PLAX LV posterior wall thickness, ED 12 mm IVS/LVPW ratio, ED 0.97 <1.3 Ventricular septum Septal thickness, ED 11.6 mm Aortic valve Leaflet separation 23 mm 15-26 Aorta Root diameter, ED 23 mm Left atrium Anterior-posterior dimension 34 mm Anterior-posterior dimension index 1.53 cm/m^2 <2.2 BASIC MEASUREMENTS ADULT NORMAL Aortic valve Leaflet separation 23 mm 15-26 DOPPLER MEASUREMENTS ADULT NORMAL Aortic valve Peak velocity, S 109 cm/s Mean velocity, S 81.2 cm/s VTI, S 22.2 cm Mean gradient, S 3 mm Hg Valve area, VTI 2.23 cm^2 Valve area index, VTI 1 cm^2/m^2 Valve area, Vmax 2.17 cm^2 Valve area index, Vmax 0.98 cm^2/m^2 Mitral valve Peak E-wave velocity 32.9 cm/s Peak A-wave velocity 24.2 cm/s Peak E/A ratio 1.4 Tricuspid valve Regurgitant peak velocity 185 cm/s Peak RV-RA gradient, S 14 mm Hg Maximal regurgitant velocity 185 cm/s Pulmonic valve Peak velocity, S 63.9 cm/s LEGEND: Mean values are shown as u=mean value. Asterisk (*) vance values outside specified normal range. Prepared and signed by Cuate Mcdermott [id number]
[2016-11-19 20:03] LABS: HEMATOCRIT 36.1 % (39.0-51.0); REVIEW FLAG FINAL
[2016-11-19] MEDS ORDERED: FAMOTIDINE 20 MG/2 ML VIAL IV PUSH SCH (21:00)
[2016-11-20] VITALS (10 sets, daily range): BP systolic 106–127; BP diastolic 55–62; PULSE 49–63; RESP 12–55; TEMP 96.7–98.4; O2SAT 90–95
[2016-11-20] MEDS: diphenhydrAMINE HCL 50 MG/ML VIAL IV PUSH SCH ×2 (02:00→07:42)
[2016-11-20] MEDS: CHLORHEXIDINE GLUCONATE 2 % 1 PACK (2 CLOTHS) TOP SCH (04:00)
[2016-11-20] MEDS: LACTATED RINGER'S 1000 ML INJ 1,000 ML IV SCH ×3 (06:08→19:43)
[2016-11-20] MEDS: HYDROCORTISONE SOD SUCCINATE 100 MG VIAL IV PUSH SCH ×2 (06:08→20:34)
[2016-11-20 07:34] LABS: AUTOMATED NEUTROPHIL # 3.1 TH/MM3 (1.8-7.7); BASOPHIL % 0.1 % (0.0-2.0); EOSINOPHIL % 0.7 % (0.0-4.0); HEMATOCRIT 35.5 % (39.0-51.0); HEMO FLAGS DIFF FINAL; LYMPH % 28.9 % (9.0-44.0); LYMPHOCYTE # 1.6 TH/MM3 (1.0-4.8); MEAN CORPUSCULAR HGB CONC 34.9 % (32.0-36.0); MONO % 13.3 % (0.0-8.0); PLATELET COUNT 122 TH/MM3 (150-450); RED BLOOD COUNT 3.99 MIL/MM3 (4.50-5.90); WHITE BLOOD COUNT 5.4 TH/MM3 (4.0-11.0)
[2016-11-20] MEDS: PANTOPRAZOLE SODIUM 40 MG VIAL IV PUSH SCH (07:42)
[2016-11-20] MEDS: SODIUM CHLORIDE 0.9% FLUSH 5 ML FLUSH IV FLUSH SCH ×2 (07:42→20:34)
[2016-11-20] MEDS: cefTRIAXone INJ 1,000 MG in SODIUM CHLORIDE 0.9% INJ 100 ML IV SCH (07:42)
[2016-11-20 07:53] LABS: BICARBONATE 27.4 MEQ/L (21.0-32.0); MAGNESIUM 2.1 MG/DL (1.5-2.5); POTASSIUM 3.9 MEQ/L (3.5-5.1)
--- NOTE | 2016-11-20 08:46 | HHI.PR ---
Subjective Remarks overall looks and feels fine. no abdominal pain, nausea or vomiting. no diarrhea. no fever. d/w the RN and no acute issues over night. d/w . Objective Vitals Vital Signs Date Time Temp Pulse Resp B/P Pulse Ox O2 Delivery O2 Flow Rate FiO2 11/20/16 08:00 49 11/20/16 08:00 97.8 49 12 108/56 95 11/20/16 06:00 50 11/20/16 04:00 49 11/20/16 04:00 98.4 49 15 115/55 90 11/20/16 02:00 54 11/20/16 00:00 56 11/20/16 00:00 97.8 56 20 106/60 92 11/19/16 22:00 53 11/19/16 20:00 98.0 58 14 116/65 91 11/19/16 20:00 58 11/19/16 19:10 95 21 11/19/16 18:00 65 11/19/16 16:00 98.0 66 13 119/73 93 11/19/16 16:00 66 11/19/16 14:00 66 11/19/16 12:00 67 11/19/16 12:00 97.8 67 14 134/65 95 11/19/16 10:00 85 11/19/16 09:20 97 Nasal Cannula 3.00 I/O 11/19/16 11/19/16 11/19/16 11/20/16 11/20/16 11/20/16 07:00 15:00 23:00 07:00 15:00 23:00 Intake Total 1197 ml 1160 ml 1293 ml 1255 ml Output Total 665 ml 1175 ml 1500 ml 900 ml Balance 532 ml -15 ml -207 ml 355 ml Intake Oral 400 ml 720 ml 240 ml IV Total 1197 ml 760 ml 573 ml 1015 ml Output Urine Total 665 ml 1175 ml 1500 ml 900 ml Result Diagram: 11/20/16 0703 11/20/16 0703 Imaging Last Impressions Abdomen/Pelvis CT 11/19/16 0000 Signed Impressions: Service Date/Time: Saturday, November 19, 2016 09:56 - CONCLUSION: 1. Small bilateral pleural effusions now noted new from the prior study. 2. Mildly nonspecific, nonobstructive bowel gas pattern which may represent a mild ileus. No oral or intravenous contrast was given. 3. Stable small cyst in the right lobe of the liver. 4. The gallbladder appears unremarkable. Marcos Lindsay MD Chest X-Ray 11/18/16 1325 Signed Impressions: Service Date/Time: November 14:03 - CONCLUSION: No acute cardiopulmonary process. Vazquez Link MD Objective Remarks GENERAL: This is a well-nourished, well-developed patient, in no apparent distress. CARDIOVASCULAR: Regular rate and regular rhythm without murmurs, gallops, or rubs. RESPIRATORY: Clear to auscultation. Breath sounds equal bilaterally. No wheezes , rales, or rhonchi. GASTROINTESTINAL: Abdomen soft, non-tender, nondistended. Normal, active bowel sounds MUSCULOSKELETAL: Extremities without clubbing, cyanosis, or edema. NEURO: Alert & Oriented x4 to person, place, time, situation. Moves all ext x4 Procedures none Medications and IVs Current Medications Ondansetron HCl 4 mg 4 mg ONCE ONCE IV Last administered on 11/18/16 14:06; Start 11/18/16 at 13:30; Stop 11/18/16 at 13:31; Status DC Sodium Chloride 1,000 ml @ 999 mls/hr BOLUS ONCE IV Last administered on 11/18 13:30; Start 11/18/16 at 13:30; Stop 11/18/16 at 14:30; Status DC Sodium Chloride (NS 1000 ml Inj) 1,000 ml @ 999 mls/hr BOLUS ONCE IV Last administered on 11/18/16 13:30; Start 11/18/16 at 13:30; Stop 11/18/16 at 14:30 ; Status DC Pantoprazole Sodium 40 mg 40 mg ONCE ONCE IV PUSH Last administered on 14:06; Start 11/18/16 at 13:30; Stop 11/18/16 at 13:31; Status DC Sodium Chloride (NS 1000 ml Inj) 1,000 ml @ 999 mls/hr BOLUS ONCE IV Last administered on 11/18/16 14:23; Start 11/18/16 at 14:15; Stop 11/18/16 at 15:15 ; Status DC Diphenhydramine HCl (Benadryl Inj) 25 mg ONCE ONCE IV PUSH Last administered on 11/18/16 14:24; Start 11/18/16 at 14:15; Stop 11/18/16 at 14:17; Status DC Hydrocortisone Sodium Succinate 100 mg 100 mg ONCE ONCE IV PUSH Last administered on 11/18/16 14:38; Start 11/18/16 at 14:45; Stop 11/18/16 at 14:46 ; Status DC Sodium Chloride (NS 1000 ml Inj) 1,000 ml @ 150 mls/hr Q6H40M IV Last administered on 11/18/16 15:34; Start 11/18/16 at 14:54; Stop 11/18/16 at 20:25 ; Status DC IV Flush (NS Flush) 2 ml UNSCH PRN IV FLUSH FLUSH AFTER USING IV ACCESS; Start 11/18/16 at 15:00 IV Flush (NS Flush) 2 ml BID IV FLUSH Last administered on 11/20/16 07:42; Start 11/18/16 at 21:00 Albuterol/ Ipratropium (Duoneb Neb) 1 ampule Q4HR NEB INH Last administered on 11/18/16 16:12; Start 11/18/16 at 16:00; Stop 11/18/16 at 18:59; Status DC Miscellaneous Information 1 Q361D XX ; Start 11/18/16 at 15:00 Chlorhexidine Gluconate (Chlorhexidine 2% Cloth) 3 pack Taper DAILY@04 TOP Last administered on 11/20/16 04:00; Start 11/19/16 at 04:00; Stop 11/15/17 at 03:59 Chlorhexidine Gluconate (Chlorhexidine 2% Cloth) 3 pack UNSCH PRN TOP HYGIENIC CARE; Start 11/18/16 at 15:00 Diphenhydramine HCl (Benadryl Inj) 25 mg Q6H IV PUSH Last administered on 07:42; Start 11/18/16 at 20:00 Famotidine (Pepcid Inj) 20 mg Q12H IV PUSH Last administered on 11/19/16 04:04 ; Start 11/18/16 at 16:00; Stop 11/19/16 at 09:15; Status DC Hydrocortisone Sodium Succinate (SoluCORTEF INJ) 100 mg Q8HR IV PUSH Last administered on 11/20/16 06:08; Start 11/18/16 at 22:00 Ondansetron HCl (Zofran Inj) 4 mg Q6HR PRN IV PUSH NAUSEA Last administered on 11/18/16 19:33; Start 11/18/16 at 19:00 Albuterol/ Ipratropium (Duoneb Neb) 1 ampule Q6HR NEB NEB Last administered on 11/19/16 09:18; Start 11/18/16 at 22:00; Stop 11/19/16 at 14:39; Status DC Albuterol Sulfate 2.5 mg 2.5 mg Q2HR NEB PRN NEB WHEEZING; Start 11/18/16 at 19 :00 Lactated Ringer's 1,000 ml @ 125 mls/hr Q8H IV Last administered on 11/20/16 06:08; Start 11/18/16 at 21:00 Lactated Ringer's (Lr 1000 ml Inj) 1,000 ml @ 999 mls/hr BOLUS ONCE IV Last administered on 11/18/16 21:56; Start 11/18/16 at 20:30; Stop 11/18/16 at 21:30 ; Status DC Acetaminophen 1000 mg 1,000 mg Q6H PRN IV PAIN; Start 11/19/16 at 08:00; Stop 11/19/16 at 14:39; Status DC Ceftriaxone Sodium/Sodium Chloride (Rocephin Inj/NS Inj) 100 ml @ 200 mls/hr Q24H IV Last administered on 11/20/16 07:42; Start 11/19/16 at 09:00 Pantoprazole Sodium 40 mg 40 mg Q24H IV PUSH Last administered on 11/20/16 07: 42; Start 11/19/16 at 09:00 Calcium Gluconate/ Sodium Chloride (Calcium Gluconate Inj/NS Inj) 110 ml @ 110 mls/hr ONCE ONCE IV Last administered on 11/19/16 10:28; Start 11/19/16 at 09 :00; Stop 11/19/16 at 09:59; Status DC Famotidine (Pepcid Inj) 10 mg Q12HR IV PUSH Last administered on 11/19/16 21: 33; Start 11/19/16 at 21:00 Aspirin (Ecotrin Ec) 325 mg ONCE ONCE PO Last administered on 11/19/16t 14:11 ; Start 11/19/16 at 14:00; Stop 11/19/16 at 14:01; Status DC A/P Assessment and Plan A/P s/p Hypovolemic shock secondary to severe dehydration due to vomiting and diarrhea. Lactic acidemia-improving Hyperlipidemia Mild elevated troponin continue IV fluid Troponin elevated to 0.10 in setting of hypovolemia and renal failure. He has no chest pain or SOB so doubtful that this represents true ischemia. d/w and plan for stress test tomorrow. taper down hydrocortisone given hypotension/urticaria- Vomiting and diarrhea - likely gastroenteritis, ?secondary to foodborne illness - resolved Zofran as needed for nausea CT abdomen/pelvis wo contrast: Mildly nonspecific, nonobstructive bowel gas pattern which may represent a mild ileus. Stable small cyst in the right lobe of the liver. The gallbladder appears unremarkable. Patient and stated that he had EGD/colonoscopy approx 6 months ago which were normal. GI consulted continue PPI Acute kidney injury- improving continue IV fluid Leukocytosis -likely due to dehydration- has resolved cultures negative- will dc Abx Urticaria, with h/o viral induced urticaria benadryl as needed ENDO: Acute Mild hyperglycemia, likely secondary to acute illness. Low-dose insulin sliding scale if glucose >185. PROPH: SCDs for DVT prophylaxis. Hold on pharmacologic DVT prophylaxis at this time given the concern for coffee grounds emesis. Protonix 40 mg IV daily for a history of GERD on home PPI. will transfer to telemetry. d/w the RN and . Luana Link MD Nov 20, 2016 08:46
--- NOTE | 2016-11-20 09:06 | PD.CARD.PN ---
Subjective Subjective Remarks No chest pain, no shortness of breath, eating well, no diarrhea Objective Medications Current Medications Medications (Trade) Dose Ordered Sig/Sukhjinder Route Start Time Stop Time Status Last Admin (NS Flush) 2 ml UNSCH PRN IV FLUSH 11/18/16 15:00 (NS Flush) 2 ml BID IV FLUSH 11/18/16 21:00 11/20/16 07:42 Miscellaneous Information 1 Q361D XX 11/18/16 15:00 (Chlorhexidine 2% Cloth) 3 pack Taper DAILY@04 TOP 11/19/16 04:00 11/15/17 03:59 11/20/16 04:00 (Chlorhexidine 2% Cloth) 3 pack UNSCH PRN TOP 11/18/16 15:00 Ondansetron HCl 4 mg 4 mg Q6HR PRN IV PUSH 11/18/16 19:00 11/18/16 19:33 (Lr 1000 ml Inj) 1,000 ml @ 75 mls/hr [id number] IV 11/18/16 21:00 11/20/16 06:08 (Protonix Inj) 40 mg Q24H IV PUSH 11/19/16 09:00 11/20/16 07:42 (Benadryl Inj) 25 mg Q6H PRN IV PUSH 11/20/16 14:00 UNV (SoluCORTEF INJ) 100 mg Q12HR IV PUSH 11/20/16 09:00 UNV (Aspirin Chew) 81 mg DAILY CHEW 11/20/16 09:00 UNV Vital Signs / I&O Vital Signs Date Time Temp Pulse Resp B/P Pulse Ox O2 Delivery O2 Flow Rate FiO2 11/20/16 08:42 92 Nasal Cannula 2.00 11/20/16 08:00 49 11/20/16 08:00 97.8 49 12 108/56 95 11/20/16 06:00 50 11/20/16 04:00 49 11/20/16 04:00 98.4 49 15 115/55 90 11/20/16 02:00 54 11/20/16 00:00 56 11/20/16 00:00 97.8 56 20 106/60 92 11/19/16 22:00 53 11/19/16 20:00 98.0 58 14 116/65 91 11/19/16 20:00 58 11/19/16 19:10 95 21 11/19/16 18:00 65 11/19/16 16:00 98.0 66 13 119/73 93 11/19/16 16:00 66 11/19/16 14:00 66 11/19/16 12:00 67 11/19/16 12:00 97.8 67 14 134/65 95 11/19/16 10:00 85 11/19/16 09:20 97 Nasal Cannula 3.00 I/O 11/19/16 11/19/16 11/19/16 11/20/16 11/20/16 11/20/16 07:00 15:00 23:00 07:00 15:00 23:00 Intake Total 1197 ml 1160 ml 1293 ml 1255 ml Output Total 665 ml 1175 ml 1500 ml 900 ml Balance 532 ml -15 ml -207 ml 355 ml Intake Oral 400 ml 720 ml 240 ml IV Total 1197 ml 760 ml 573 ml 1015 ml Output Urine Total 665 ml 1175 ml 1500 ml 900 ml Physical Exam GENERAL: NAD, AAOx3 SKIN: Warm and dry. HEAD: Atraumatic. Normocephalic. EYES: Pupils equal and round. No scleral icterus. No injection or drainage. ENT: No nasal bleeding or discharge. Mucous membranes pink and moist. NECK: Trachea midline. No JVD. CARDIOVASCULAR: Regular rate and rhythm. RESPIRATORY: No accessory muscle use. Clear to auscultation. Breath sounds equal bilaterally. GASTROINTESTINAL: Abdomen soft, non-tender, nondistended. Hepatic and splenic margins not palpable. MUSCULOSKELETAL: Extremities without clubbing, cyanosis, or edema. No obvious deformities. NEUROLOGICAL: Awake and alert. No obvious cranial nerve deficits. Motor grossly within normal limits. Five out of 5 muscle strength in the arms and legs. Normal speech. PSYCHIATRIC: Appropriate mood and affect; insight and judgment normal. Laboratory Laboratory Tests Test 11/19/16 11/19/16 11/20/16 12:50 19:52 07:03 Lactic Acid Level 3.1 mmol/L 3.2 mmol/L Troponin I 0.69 NG/ML 0.61 NG/ML Hemoglobin 13.0 GM/DL 12.4 GM/DL Hematocrit 36.1 % 35.5 % White Blood Count 5.4 TH/MM3 Red Blood Count 3.99 MIL/MM3 Mean Corpuscular Volume 89.0 FL Mean Corpuscular Hemoglobin 31.0 PG Mean Corpuscular Hemoglobin 34.9 % Concent Red Cell Distribution Width 14.0 % Platelet Count 122 TH/MM3 Mean Platelet Volume 8.8 FL Neutrophils (%) (Auto) 57.0 % Lymphocytes (%) (Auto) 28.9 % Monocytes (%) (Auto) 13.3 % Eosinophils (%) (Auto) 0.7 % Basophils (%) (Auto) 0.1 % Neutrophils # (Auto) 3.1 TH/MM3 Lymphocytes # (Auto) 1.6 TH/MM3 Monocytes # (Auto) 0.7 TH/MM3 Eosinophils # (Auto) 0.0 TH/MM3 Basophils # (Auto) 0.0 TH/MM3 CBC Comment DIFF FINAL Differential Comment Sodium Level 144 MEQ/L Potassium Level 3.9 MEQ/L Chloride Level 110 MEQ/L Carbon Dioxide Level 27.4 MEQ/L Anion Gap 7 MEQ/L Blood Urea Nitrogen 16 MG/DL Creatinine 0.97 MG/DL Estimat Glomerular Filtration 78 ML/MIN Rate Random Glucose 102 MG/DL Calcium Level 7.8 MG/DL Phosphorus Level 2.8 MG/DL Magnesium Level 2.1 MG/DL Assessment and Plan Problem List: (1) Hypovolemic shock (2) Acute renal failure (3) Lactic acidosis (4) Nausea & vomiting (5) Elevated troponin Assessment and Plan 1) Doing better, no further nausea/emesis/diarrhea, most likely gastroenteritis 2) Elevated troponin most likely due to hypovolemic shock, but unable to rule out underlying CAD, will plan on pharmacologic nuclear stress test in the morning 3) NPO after midnight for stress test 4) If negative, then may discharge from a cardiovascular standpoint Problem Qualifiers (1) Acute renal failure: Qualified Code: N17.9 - Acute renal failure, unspecified acute renal failure type McdermottCuate chamorro Nov 20, 2016 09:06
--- NOTE | 2016-11-20 09:18 | PD.CONS ---
HPI History of Present Illness This is a 65 year old male with past medical history of CAD, cardiac stent, gastritis, skin caner is here with acute sudden onset of nausea, vomiting, and diarrhea. This happened after eating lunch at [facility] on Tuesday. At first , he didn't feel very well and had dyspepsia and epigastric pain, this was followed by explosive severe diarrhea X 3, non bloody, non melanotic, then he went to sleep, at MN, he got up and started vomiting, the initial emesis was food with particles, but the following episodes were dark coffee liquid. He was vomiting every 45 minutes on the hour, at that point, he began to drink water for fear of dehydration, but he was throwing that up as well, at that time he felt light headed, dizzy and had to catch him self from falling, that's when he came to the ED for evaluation. On arrival, he was hypotensive, elevated troponin , acute kidney failure, LFTs, lipase normal, hgb was 20, today is12.[address] done and that showed mild ileus. Patient is doing much better now, he has been tolerating diet okay, no vomiting or diarrhea since yesterday. He had EGD/ colonoscopy on (06/15/16)---> mild gastritis, duodenal inflammation, small sessile polyp found in distal transverse colon, other mckeon normal. BX benign. He is being followed by cardiology for elevated troponin, and there is a plan for stress test. 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 Past Surgical History EGD and colonoscopy Left inguinal hernia repair Umbilical hernia repair Left elbow ORIF and arthroplasty Melanoma resection 4 years ago Resection of basal cell and squamous cell skin cancers Cardiac catheterization with coronary stent 2 years ago (Mingo Aguilar) Coded Allergies: Latex (Unverified Allergy, Severe, Anaphylaxis, 11/18/16) Vicodin (Unverified Allergy, Severe, Hives, 11/18/16) Medications Current Medications Medications (Trade) Dose Ordered Sig/Sukhjinder Route Start Time Stop Time Status Last Admin (NS Flush) 2 ml UNSCH PRN IV FLUSH 11/18/16 15:00 (NS Flush) 2 ml BID IV FLUSH 11/18/16 21:00 11/20/16 07:42 Miscellaneous Information 1 Q361D XX 11/18/16 15:00 (Chlorhexidine 2% Cloth) 3 pack Taper DAILY@04 TOP 11/19/16 04:00 11/15/17 03:59 11/20/16 04:00 (Chlorhexidine 2% Cloth) 3 pack UNSCH PRN TOP 11/18/16 15:00 (Benadryl Inj) 25 mg Q6H IV PUSH 11/18/16 20:00 11/20/16 07:42 (SoluCORTEF INJ) 100 mg Q8HR IV PUSH 11/18/16 22:00 11/20/16 06:08 Ondansetron HCl 4 mg 4 mg Q6HR PRN IV PUSH 11/18/16 19:00 11/18/16 19:33 Lactated Ringer's 1,000 ml @ 125 mls/hr Q8H IV 11/18/16 21:00 11/20/16 06:08 (Rocephin Inj/NS Inj) 100 ml @ 200 mls/hr Q24H IV 11/19/16 09:00 11/20/16 07:42 (Protonix Inj) 40 mg Q24H IV PUSH 11/19/16 09:00 11/20/16 07:42 (Pepcid Inj) 10 mg Q12HR IV PUSH 11/19/16 21:00 11/19/16 21:33 Family History no family history of colon or gastric cancer Social History No alcohol No smoking No illicit drug use (Mingo Aguilar) Review of Systems Constitutional: COMPLAINS OF: Fatigue, Dizziness Endocrine: DENIES: Polyuria Eyes: DENIES: Double Vision Ears, nose, mouth, throat: DENIES: Hoarseness Respiratory: DENIES: Shortness of breath Cardiovascular: DENIES: Lower Extremity Edema Gastrointestinal: COMPLAINS OF: Abdominal pain, Diarrhea, Nausea, Vomiting, DENIES: Black stools, Bloody stools, Constipation, Difficulty Swallowing, Anorexia, Odynophagia, Swelling of Abdomen, Heartburn, Hematemesis Genitourinary: DENIES: Hematuria Musculoskeletal: DENIES: Neck pain Integumentary: DENIES: Jaundice Hematologic/lymphatic: DENIES: Bruising Immunologic/allergic: DENIES: Eczema Neurologic: DENIES: Abnormal gait Psychiatric: DENIES: Anxiety (Mingo Aguilar) GI Exam Vitals I&O Vital Signs Date Time Temp Pulse Resp B/P Pulse Ox O2 Delivery O2 Flow Rate FiO2 11/20/16 08:42 92 Nasal Cannula 2.00 11/20/16 08:00 49 11/20/16 08:00 97.8 49 12 108/56 95 11/20/16 06:00 50 11/20/16 04:00 49 11/20/16 04:00 98.4 49 15 115/55 90 11/20/16 02:00 54 11/20/16 00:00 56 11/20/16 00:00 97.8 56 20 106/60 92 11/19/16 22:00 53 11/19/16 20:00 98.0 58 14 116/65 91 11/19/16 20:00 58 11/19/16 19:10 95 21 11/19/16 18:00 65 11/19/16 16:00 98.0 66 13 119/73 93 11/19/16 16:00 66 11/19/16 14:00 66 11/19/16 12:00 67 11/19/16 12:00 97.8 67 14 134/65 95 11/19/16 10:00 85 11/19/16 09:20 97 Nasal Cannula 3.00 I/O 11/19/16 11/19/16 11/19/16 11/20/16 11/20/16 11/20/16 07:00 15:00 23:00 07:00 15:00 23:00 Intake Total 1197 ml 1160 ml 1293 ml 1255 ml Output Total 665 ml 1175 ml 1500 ml 900 ml Balance 532 ml -15 ml -207 ml 355 ml Intake Oral 400 ml 720 ml 240 ml IV Total 1197 ml 760 ml 573 ml 1015 ml Output Urine Total 665 ml 1175 ml 1500 ml 900 ml Imaging Last Impressions Abdomen/Pelvis CT 11/19/16 0000 Signed Impressions: Service Date/Time: Saturday, November 19, 2016 09:56 - CONCLUSION: 1. Small bilateral pleural effusions now noted new from the prior study. 2. Mildly nonspecific, nonobstructive bowel gas pattern which may represent a mild ileus. No oral or intravenous contrast was given. 3. Stable small cyst in the right lobe of the liver. 4. The gallbladder appears unremarkable. Marcos Lindsay MD Chest X-Ray 11/18/16 1325 Signed Impressions: Service Date/Time: November 14:03 - CONCLUSION: No acute cardiopulmonary process. Vazquez Link MD Laboratory Test 11/19/16 11/19/16 11/20/16 12:50 19:52 07:03 Lactic Acid Level 3.1 mmol/L 3.2 mmol/L Troponin I 0.69 NG/ML 0.61 NG/ML Hemoglobin 13.0 GM/DL 12.4 GM/DL Hematocrit 36.1 % 35.5 % White Blood Count 5.4 TH/MM3 Red Blood Count 3.99 MIL/MM3 Mean Corpuscular Volume 89.0 FL Mean Corpuscular Hemoglobin 31.0 PG Mean Corpuscular Hemoglobin 34.9 % Concent Red Cell Distribution Width 14.0 % Platelet Count 122 TH/MM3 Mean Platelet Volume 8.8 FL Neutrophils (%) (Auto) 57.0 % Lymphocytes (%) (Auto) 28.9 % Monocytes (%) (Auto) 13.3 % Eosinophils (%) (Auto) 0.7 % Basophils (%) (Auto) 0.1 % Neutrophils # (Auto) 3.1 TH/MM3 Lymphocytes # (Auto) 1.6 TH/MM3 Monocytes # (Auto) 0.7 TH/MM3 Eosinophils # (Auto) 0.0 TH/MM3 Basophils # (Auto) 0.0 TH/MM3 CBC Comment DIFF FINAL Differential Comment Sodium Level 144 MEQ/L Potassium Level 3.9 MEQ/L Chloride Level 110 MEQ/L Carbon Dioxide Level 27.4 MEQ/L Anion Gap 7 MEQ/L Blood Urea Nitrogen 16 MG/DL Creatinine 0.97 MG/DL Estimat Glomerular Filtration 78 ML/MIN Rate Random Glucose 102 MG/DL Calcium Level 7.8 MG/DL Phosphorus Level 2.8 MG/DL Magnesium Level 2.1 MG/DL Date/Time Procedure Status Source Growth 11/18/16 17:09 Urine Culture - Preliminary Resulted Urine Catheterized Urine NO GROWTH IN 24 HOURS. 11/18/16 13:54 Influenza Types A,B Antigen ([facility]) - Final Complete Nasal Aspirate NEGATIVE FOR FLU A AND B ANTIGEN.... 11/18/16 13:51 Aerobic Blood Culture - Preliminary Resulted Blood Peripheral NO GROWTH IN 1 DAY 2/16/17 13:51 Anaerobic Blood Culture - Preliminary Resulted Blood Peripheral NO GROWTH IN 1 DAY Physical Examination HEENT: normocephalic; atraumatic; no jaundice. NECK: Neck is supple, no JVD, no lymphadenopathy. CHEST: Chest is clear to auscultation and percussion. CARDIAC: Regular rate and rhythm with no murmur gallop or rubs. ABDOMEN: Soft, nondistended, nontender; no hepatosplenomegaly; bowel sounds are present in all four quadrants. EXTREMITIES: No clubbing, cyanosis, or edema. SKIN: Normal; no rash; no jaundice. LAP MAKER: No focal deficits; alert and oriented times three. (Mingo Aguilar) Assessment and Plan Plan - Nausea, vomiting, diarrhea acute sudden onset- most likely acute gastroenteritis, food poisoning LFTs, lipase normal, hgb was 20, today is12.[address] done and that showed mild ileus. Patient is doing much better now, he has been tolerating diet okay, no vomiting or diarrhea since yesterday. He had EGD/colonoscopy on (06/15/16)---> mild gastritis, duodenal inflammation, small sessile polyp found in distal transverse colon, other mckeon normal. BX benign. He is being followed by cardiology for elevated troponin, and there is a plan for stress test. - Ileus- mild most likely secondary to gastroenteritis, tolerating diet okay, no more nausea or vomiting or diarrhea - mild anemia- most likely dilutional effect, no reported bleeding - Elevated troponin- could be secondary to hypovolemia, cardiology non the case , stress test tomorrow - ELYSSA- improving, due to hypovolemia - Leukocytosis- resolved Plan: - NAV - this is most likely gastroenteritis, patient is doing good no more symptoms - Supportive care - Cardiology on the case - Monitor labs - GI will sign off - Reconsult as needed - Patient seen and examined by Dr. Ness and myself and this note is written on her behalf. (Mingo Aguilar) Physician Comments seen, examined agree with above most likely ffod poisoning, no more diarrhea, no stools send upon admission he states he had a similar issue few years ago we will order hida scan op ok to [facility] 4 weeks gi will sign off (Ruma Ness MD) Mingo Aguilar OMER Nov 20, 2016 09:18 Ruma Ness MD Nov 20, 2016 14:07
[2016-11-20] MEDS: ASPIRIN 81 MG CHEW TAB CHEW SCH (10:12)
[2016-11-20] MEDS ORDERED: diphenhydrAMINE HCL 50 MG/ML VIAL IV PUSH PRN (14:00)
[2016-11-21] MEDS: CHLORHEXIDINE GLUCONATE 2 % 1 PACK (2 CLOTHS) TOP SCH (00:08)
[2016-11-21 00:33] VITALS: BP 121/61; PULSE 54; RESP 20; TEMP 98.2; O2SAT 95
[2016-11-21 04:35] VITALS: BP 128/69; PULSE 40; RESP 20; TEMP 97.2; O2SAT 96
[2016-11-21 05:06] VITALS: PULSE 41
[2016-11-21 07:22] VITALS: BP 133/70; PULSE 47; RESP 17; TEMP 97.3; O2SAT 94
[2016-11-21] MEDS: LACTATED RINGER'S 1000 ML INJ 1,000 ML IV SCH (09:21)
--- NOTE | 2016-11-21 09:49 | PD.CARD.PN ---
Subjective Subjective Remarks No chest pain, no shortness of breath Objective Medications Current Medications Medications (Trade) Dose Ordered Sig/Sukhjinder Route Start Time Stop Time Status Last Admin (NS Flush) 2 ml UNSCH PRN IV FLUSH 11/18/16 15:00 (NS Flush) 2 ml BID IV FLUSH 11/18/16 21:00 11/20/16 20:34 Miscellaneous Information 1 [id number] XX 11/18/16 15:00 (Chlorhexidine 2% Cloth) 3 pack Taper DAILY@04 TOP 11/19/16 04:00 11/15/17 03:59 11/20/16 04:00 (Chlorhexidine 2% Cloth) 3 pack UNSCH PRN TOP 11/18/16 15:00 Ondansetron HCl 4 mg 4 mg Q6HR PRN IV PUSH 11/18/16 19:00 11/18/16 19:33 (Lr 1000 ml Inj) 1,000 ml @ 75 mls/hr [id number] IV 11/18/16 21:00 11/20/16 06:08 (Protonix Inj) 40 mg Q24H IV PUSH 11/19/16 09:00 11/20/16 07:42 (Benadryl Inj) 25 mg Q6H PRN IV PUSH 11/20/16 14:00 (SoluCORTEF INJ) 100 mg Q12HR IV PUSH 11/20/16 21:00 11/20/16 20:34 (Aspirin Chew) 81 mg DAILY CHEW 11/20/16 09:00 11/20/16 10:12 (Pneumovax-23 Inj) 25 mcg ONCE ONCE IM 11/21/16 10:00 11/21/16 10:01 (Flu (Quadrivalent) Vaccine Inj) 0.5 ml ONCE ONCE IM 11/21/16 10:00 11/21/16 10:01 Vital Signs / I&O Vital Signs Date Time Temp Pulse Resp B/P Pulse Ox O2 Delivery O2 Flow Rate FiO2 11/21/16 07:22 97.3 47 17 133/70 94 11/21/16 05:06 41 11/21/16 04:35 97.2 40 20 128/69 96 11/21/16 00:33 98.2 54 20 121/61 95 11/20/16 20:36 97.5 61 20 127/62 93 11/20/16 15:38 97.6 61 55 118/61 93 11/20/16 10:49 96.7 60 17 116/57 94 11/20/16 10:00 63 I/O 11/20/16 11/20/16 11/20/16 11/21/16 11/21/16 11/21/16 07:00 15:00 23:00 07:00 15:00 23:00 Intake Total 1255 ml 720 ml Output Total 900 ml 400 ml Balance 355 ml 320 ml Intake Oral 240 ml 720 ml IV Total 1015 ml Output Urine Total 900 ml 400 ml # Voids 1 1 2 # Bowel Movements 1 1 1 Physical Exam GENERAL: NAD, AAOx3 SKIN: Warm and dry. HEAD: Atraumatic. Normocephalic. EYES: Pupils equal and round. No scleral icterus. No injection or drainage. ENT: No nasal bleeding or discharge. Mucous membranes pink and moist. NECK: Trachea midline. No JVD. CARDIOVASCULAR: Regular rate and rhythm. RESPIRATORY: No accessory muscle use. Clear to auscultation. Breath sounds equal bilaterally. GASTROINTESTINAL: Abdomen soft, non-tender, nondistended. Hepatic and splenic margins not palpable. MUSCULOSKELETAL: Extremities without clubbing, cyanosis, or edema. No obvious deformities. NEUROLOGICAL: Awake and alert. No obvious cranial nerve deficits. Motor grossly within normal limits. Five out of 5 muscle strength in the arms and legs. Normal speech. PSYCHIATRIC: Appropriate mood and affect; insight and judgment normal. Assessment and Plan Problem List: (1) Hypovolemic shock (2) Acute renal failure (3) Lactic acidosis (4) Nausea & vomiting (5) Elevated troponin Assessment and Plan 1) Doing better, no further nausea/emesis/diarrhea, most likely gastroenteritis 2) Elevated troponin most likely due to hypovolemic shock, but unable to rule out underlying CAD, pharmacologic nuclear stress test today 3) If negative, then may discharge from a cardiovascular standpoint 4) If positive, will plan cardiac catheterization in the morning 5) Asymptomatic bradycardia, no episodes of pre-syncope or syncope (other than pre-syncope during the hypovolemic shock) Problem Qualifiers (1) Acute renal failure: Qualified Code: N17.9 - Acute renal failure, unspecified acute renal failure type Cuate Mcdermott DO Nov 21, 2016 09:49
[2016-11-21] MEDS ORDERED: PNEUMOCOCCAL POLYVALENT INJ 25 MCG/0.5 ML SYR IM ONE (10:00)
[2016-11-21] MEDS ORDERED: INFLUENZA VIRUS VACCINE (QUADRIVALENT) 0.5 ML SYR IM ONE (10:00)
[2016-11-21] MEDS: ASPIRIN 81 MG CHEW TAB CHEW SCH (10:25)
[2016-11-21] MEDS: HYDROCORTISONE SOD SUCCINATE 100 MG VIAL IV PUSH SCH (10:27)
[2016-11-21] MEDS: PANTOPRAZOLE SODIUM 40 MG VIAL IV PUSH SCH (10:27)
[2016-11-21] MEDS: SODIUM CHLORIDE 0.9% FLUSH 5 ML FLUSH IV FLUSH SCH (10:28)
[2016-11-21 11:00] VITALS: BP 138/80; PULSE 42; RESP 17; TEMP 97.6; O2SAT 97
--- NOTE | 2016-11-21 11:19 | HHI.PR ---
Subjective Remarks resting comfortably with no distress. no abdominal pain, nausea, vomiting or diarrhea. no fever. no chest pain. Objective Vitals Vital Signs Date Time Temp Pulse Resp B/P Pulse Ox O2 Delivery O2 Flow Rate FiO2 11/21/16 07:22 97.3 47 17 133/70 94 11/21/16 05:06 41 11/21/16 04:35 97.2 40 20 128/69 96 11/21/16 00:33 98.2 54 20 121/61 95 11/20/16 20:36 97.5 61 20 127/62 93 11/20/16 15:38 97.6 61 55 118/61 93 I/O 11/20/16 11/20/16 11/20/16 11/21/16 11/21/16 11/21/16 07:00 15:00 23:00 07:00 15:00 23:00 Intake Total 1255 ml 720 ml Output Total 900 ml 400 ml Balance 355 ml 320 ml Intake Oral 240 ml 720 ml IV Total 1015 ml Output Urine Total 900 ml 400 ml # Voids 1 1 2 # Bowel Movements 1 1 1 Result Diagram: 11/20/16 0703 11/20/16 0703 Imaging Last Impressions Abdomen/Pelvis CT 11/19/16 0000 Signed Impressions: Service Date/Time: Saturday, November 19, 2016 09:56 - CONCLUSION: 1. Small bilateral pleural effusions now noted new from the prior study. 2. Mildly nonspecific, nonobstructive bowel gas pattern which may represent a mild ileus. No oral or intravenous contrast was given. 3. Stable small cyst in the right lobe of the liver. 4. The gallbladder appears unremarkable. Marcos Lindsay MD Chest X-Ray 11/18/16 1325 Signed Impressions: Service Date/Time: November 14:03 - CONCLUSION: No acute cardiopulmonary process. Vazquez Link MD Objective Remarks GENERAL: This is a well-nourished, well-developed patient, in no apparent distress. CARDIOVASCULAR: Regular rate and regular rhythm without murmurs, gallops, or rubs. RESPIRATORY: Clear to auscultation. Breath sounds equal bilaterally. No wheezes , rales, or rhonchi. GASTROINTESTINAL: Abdomen soft, non-tender, nondistended. Normal, active bowel sounds MUSCULOSKELETAL: Extremities without clubbing, cyanosis, or edema. NEURO: Alert & Oriented x4 to person, place, time, situation. Moves all ext x4 Procedures none Medications and IVs Current Medications Ondansetron HCl 4 mg 4 mg ONCE ONCE IV Last administered on 11/18/16 14:06; Start 11/18/16 at 13:30; Stop 11/18/16 at 13:31; Status DC Sodium Chloride 1,000 ml @ 999 mls/hr BOLUS ONCE IV Last administered on 11/18 13:30; Start 11/18/16 at 13:30; Stop 11/18/16 at 14:30; Status DC Sodium Chloride (NS 1000 ml Inj) 1,000 ml @ 999 mls/hr BOLUS ONCE IV Last administered on 11/18/16 13:30; Start 11/18/16 at 13:30; Stop 11/18/16 at 14:30 ; Status DC Pantoprazole Sodium 40 mg 40 mg ONCE ONCE IV PUSH Last administered on 14:06; Start 11/18/16 at 13:30; Stop 11/18/16 at 13:31; Status DC Sodium Chloride (NS 1000 ml Inj) 1,000 ml @ 999 mls/hr BOLUS ONCE IV Last administered on 11/18/16 14:23; Start 11/18/16 at 14:15; Stop 11/18/16 at 15:15 ; Status DC Diphenhydramine HCl (Benadryl Inj) 25 mg ONCE ONCE IV PUSH Last administered on 11/18/16 14:24; Start 11/18/16 at 14:15; Stop 11/18/16 at 14:17; Status DC Hydrocortisone Sodium Succinate 100 mg 100 mg ONCE ONCE IV PUSH Last administered on 11/18/16 14:38; Start 11/18/16 at 14:45; Stop 11/18/16 at 14:46 ; Status DC Sodium Chloride (NS 1000 ml Inj) 1,000 ml @ 150 mls/hr Q6H40M IV Last administered on 11/18/16 15:34; Start 11/18/16 at 14:54; Stop 11/18/16 at 20:25 ; Status DC IV Flush (NS Flush) 2 ml UNSCH PRN IV FLUSH FLUSH AFTER USING IV ACCESS; Start 11/18/16 at 15:00 IV Flush (NS Flush) 2 ml BID IV FLUSH Last administered on 11/21/16 10:28; Start 11/18/16 at 21:00 Albuterol/ Ipratropium (Duoneb Neb) 1 ampule Q4HR NEB INH Last administered on 11/18/16 16:12; Start 11/18/16 at 16:00; Stop 11/18/16 at 18:59; Status DC Miscellaneous Information 1 Q361D XX ; Start 11/18/16 at 15:00 Chlorhexidine Gluconate (Chlorhexidine 2% Cloth) 3 pack Taper DAILY@04 TOP Last administered on 11/20/16 04:00; Start 11/19/16 at 04:00; Stop 11/15/17 at 03:59 Chlorhexidine Gluconate (Chlorhexidine 2% Cloth) 3 pack UNSCH PRN TOP HYGIENIC CARE; Start 11/18/16 at 15:00 Diphenhydramine HCl (Benadryl Inj) 25 mg Q6H IV PUSH Last administered on 07:42; Start 11/18/16 at 20:00; Stop 11/20/16 at 08:53; Status DC Famotidine (Pepcid Inj) 20 mg Q12H IV PUSH Last administered on 11/19/16 04:04 ; Start 11/18/16 at 16:00; Stop 11/19/16 at 09:15; Status DC Hydrocortisone Sodium Succinate (SoluCORTEF INJ) 100 mg Q8HR IV PUSH Last administered on 11/20/16 06:08; Start 11/18/16 at 22:00; Stop 11/20/16 at 08:53 ; Status DC Ondansetron HCl (Zofran Inj) 4 mg Q6HR PRN IV PUSH NAUSEA Last administered on 11/18/16 19:33; Start 11/18/16 at 19:00 Albuterol/ Ipratropium (Duoneb Neb) 1 ampule Q6HR NEB NEB Last administered on 11/19/16 09:18; Start 11/18/16 at 22:00; Stop 11/19/16 at 14:39; Status DC Albuterol Sulfate 2.5 mg 2.5 mg Q2HR NEB PRN NEB WHEEZING; Start 11/18/16 at 19 :00 Lactated Ringer's 1,000 ml @ 75 mls/hr [id number] IV Last administered on 06:08; Start 11/18/16 at 21:00 Lactated Ringer's (Lr 1000 ml Inj) 1,000 ml @ 999 mls/hr BOLUS ONCE IV Last administered on 11/18/16 21:56; Start 11/18/16 at 20:30; Stop 11/18/16 at 21:30 ; Status DC Acetaminophen 1000 mg 1,000 mg Q6H PRN IV PAIN; Start 11/19/16 at 08:00; Stop 11/19/16 at 14:39; Status DC Ceftriaxone Sodium/Sodium Chloride (Rocephin Inj/NS Inj) 100 ml @ 200 mls/hr Q24H IV Last administered on 11/20/16 07:42; Start 11/19/16 at 09:00; Stop at 08:53; Status DC Pantoprazole Sodium 40 mg 40 mg Q24H IV PUSH Last administered on 11/21/16 10: 27; Start 11/19/16 at 09:00 Calcium Gluconate/ Sodium Chloride (Calcium Gluconate Inj/NS Inj) 110 ml @ 110 mls/hr ONCE ONCE IV Last administered on 11/19/16 10:28; Start 11/19/16 at 09 :00; Stop 11/19/16 at 09:59; Status DC Famotidine (Pepcid Inj) 10 mg Q12HR IV PUSH Last administered on 11/19/16 21: 33; Start 11/19/16 at 21:00; Stop 11/20/16 at 08:54; Status DC Aspirin (Ecotrin Ec) 325 mg ONCE ONCE PO Last administered on 11/19/16 14:11 ; Start 11/19/16 at 14:00; Stop 11/19/16 at 14:01; Status DC Diphenhydramine HCl (Benadryl Inj) 25 mg Q6H PRN IV PUSH ITCHING; Start at 14:00 Hydrocortisone Sodium Succinate (SoluCORTEF INJ) 100 mg Q12HR IV PUSH Last administered on 11/21/16 10:27; Start 11/20/16 at 21:00 Aspirin (Aspirin Chew) 81 mg DAILY CHEW Last administered on 11/21/16 10:25; Start 11/20/16 at 09:00 Pneumococcal Polyvalent Vaccine (Pneumovax-23 Inj) 25 mcg ONCE ONCE IM Last administered on 11/21/16 10:52; Start 11/21/16 at 10:00; Stop 11/21/16 at 10:01 ; Status DC Influenza Virus Vaccine (Flu (Quadrivalent) Vaccine Inj) 0.5 ml ONCE ONCE IM Last administered on 11/21/16 10:53; Start 11/21/16 at 10:00; Stop 11/21/16 at 10:01; Status DC A/P Assessment and Plan A/P s/p Hypovolemic shock secondary to severe dehydration due to vomiting and diarrhea- now has resolved. Lactic acidemia-improving Hyperlipidemia Mild elevated troponin asymptomatic bradycardia continue IV fluid Troponin elevated to 0.10 in setting of hypovolemia and renal failure. He has no chest pain or SOB so doubtful that this represents true ischemia. d/w and plan for stress test tomorrow. stop hydrocortisone . for stress test today. Vomiting and diarrhea - likely gastroenteritis, ?secondary to foodborne illness - resolved Zofran as needed for nausea CT abdomen/pelvis wo contrast: Mildly nonspecific, nonobstructive bowel gas pattern which may represent a mild ileus. Stable small cyst in the right lobe of the liver. The gallbladder appears unremarkable. Patient and stated that he had EGD/colonoscopy approx 6 months ago which were normal. GI consulted and cleared for discharge. continue PPI Acute kidney injury- improved on IV hydration. Leukocytosis -likely due to dehydration- has resolved cultures negative-dc'ed Abx. Urticaria, with h/o viral induced urticaria benadryl as needed ENDO: Acute Mild hyperglycemia, likely secondary to acute illness. Low-dose insulin sliding scale if glucose >185. PROPH: SCDs for DVT prophylaxis. on PPI Discharge Planning dc home later today if stress test negative. see med list. d/w the patient. Luana Link MD Nov 21, 2016 11:19
--- NOTE | 2016-11-21 11:20 | HHI.DCPOC ---
Discharge Care Plan Diagnosis: (1) Nausea & vomiting (2) Hypotension Additional Problems low blood pressure/ gastroenteritis. Goals to Promote Your Health * To prevent worsening of your condition and complications * To maintain your health at the optimal level Directions to Meet Your Goals Take your medications as prescribed Follow your dietary instruction Follow activity as directed Keep your appointments as scheduled Take your immunizations and boosters as scheduled If your symptoms worsen call your PCP, if no PCP go to Urgent Care Center or Emergency Room Smoking is Dangerous to Your Health. Avoid second hand smoke Call the 24-hour hour crisis hotline for domestic abuse at Luana Link MD Nov 21, 2016 11:20
--- NOTE | 2016-11-21 11:29 | HHI.DS ---
Discharge Summary Admission Date Nov 18, 2016 at 14:58 Discharge Date: Nov 21, 2016 Admitting Diagnosis acute renal failure, lactic acidosis, idiopathic urticaria (1) Nausea & vomiting ICD Code: R11.2 Diagnosis: Principal (2) Elevated troponin ICD Code: R78.89 Diagnosis: Principal (3) Hypotension ICD Code: I95.9 Diagnosis: Principal Procedures none Brief History - From Admission 65 yo male who presents with one day history of vomiting. He states that he ate a [employer] sandwich with Incont at around noon on 11/17/16. At around 18:00 he began to feel ill and had 2 loose stools. He then had multiple episodes of vomiting too numerous to count throughout the evening. He could not keep anything down. He said some of the vomit looked dark ??coffee ground. No melena or BRBPR. He did have some abdominal cramping but no consistent abdominal pain. He has also developed urticaria on his chest, arms, legs. He states he has gotten this before when he had viral illnesses and that he has seen an automatic glove turner and former who told him it is idiopathic. He denies any throat tightness or SOB. He was hypotensive upon arrival to the ED with blood pressure in the 70s over 40s. Heart rate is in the 80s. He appeared clinically dry and labs supported significant dehydration with a hemoglobin of 20.2, creatinine of 3.5. Lactic acid is 4.6. CBC/BMP: 11/20/16 0703 11/20/16 0703 Significant Findings Laboratory Tests Test 11/18/16 11/18/16 11/18/16 11/18/16 13:15 16:35 17:09 18:30 White Blood Count 15.6 TH/MM3 (4.0-11.0) Red Blood Count 6.77 MIL/MM3 (4.50-5.90) Hemoglobin 20.2 GM/DL (13.0-17.0) Hematocrit 60.9 % (39.0-51.0) Neutrophils (%) (Auto) 88.5 % (16.0-70.0) Neutrophils # (Auto) 13.9 TH/MM3 (1.8-7.7) Anion Gap 16 MEQ/L (5-15) Blood Urea Nitrogen 26 MG/DL (7-18) 30 MG/DL (7-18) Creatinine 3.50 MG/DL 2.69 MG/DL (0.60-1.30) (0.60-1.30) Estimat Glomerular Filtration 18 ML/MIN (>89) 24 ML/MIN (>89) Rate Random Glucose 150 MG/DL 147 MG/DL (74-106) (74-106) Lactic Acid Level 4.6 mmol/L 2.3 mmol/L 2.3 mmol/L (0.4-2.0) (0.4-2.0) (0.4-2.0) Total Bilirubin 1.7 MG/DL 1.1 MG/DL (0.2-1.0) (0.2-1.0) Alkaline Phosphatase 42 U/L (45-117) 31 U/L (45-117) Creatine Kinase MB 4.9 NG/ML (0.5-3.6) Troponin I 0.10 NG/ML 0.50 NG/ML (0.02-0.05) (0.02-0.05) Albumin 3.2 GM/DL 2.5 GM/DL (3.4-5.0) (3.4-5.0) Urine Protein 100 mg/dL (NEG-TRACE) Urine Ketones TRACE mg/dL (NEG) Urine WBC 9-14 /hpf (0-5) Urine Hyaline Casts 10-14 /lpf (RARE) Urine Mucus MOD /lpf (OCC) Chloride Level 108 MEQ/L (98-107) Carbon Dioxide Level 20.3 MEQ/L (21.0-32.0) Calcium Level 7.1 MG/DL (8.5-10.1) Protein Corrected Calcium 8.2 MG/DL (8.5-10.1) Total Protein 5.1 GM/DL (6.4-8.2) Test 11/19/16 11/19/16 11/19/16 11/20/16 04:07 12:50 19:52 07:03 Platelet Count 149 TH/MM3 122 TH/MM3 (150-450) (150-450) Neutrophils (%) (Auto) 73.9 % (16.0-70.0) Chloride Level 111 MEQ/L 110 MEQ/L (98-107) (98-107) Blood Urea Nitrogen 32 MG/DL (7-18) Creatinine 2.10 MG/DL (0.60-1.30) Estimat Glomerular Filtration 32 ML/MIN (>89) 78 ML/MIN (>89) Rate Random Glucose 128 MG/DL (74-106) Lactic Acid Level 2.3 mmol/L 3.1 mmol/L 3.2 mmol/L (0.4-2.0) (0.4-2.0) (0.4-2.0) Calcium Level 7.3 MG/DL 7.8 MG/DL (8.5-10.1) (8.5-10.1) Protein Corrected Calcium 8.3 MG/DL (8.5-10.1) Alkaline Phosphatase 29 U/L (45-117) Total Protein 5.2 GM/DL (6.4-8.2) Albumin 2.4 GM/DL (3.4-5.0) Troponin I 0.69 NG/ML 0.61 NG/ML (0.02-0.05) (0.02-0.05) Hematocrit 36.1 % 35.5 % (39.0-51.0) (39.0-51.0) Red Blood Count 3.99 MIL/MM3 (4.50-5.90) Hemoglobin 12.4 GM/DL (13.0-17.0) Monocytes (%) (Auto) 13.3 % (0.0-8.0) Imaging Last Impressions Abdomen/Pelvis CT 11/19/16 0000 Signed Impressions: Service Date/Time: Saturday, November 19, 2016 09:56 - CONCLUSION: 1. Small bilateral pleural effusions now noted new from the prior study. 2. Mildly nonspecific, nonobstructive bowel gas pattern which may represent a mild ileus. No oral or intravenous contrast was given. 3. Stable small cyst in the right lobe of the liver. 4. The gallbladder appears unremarkable. Marcos Lindsay MD Chest X-Ray 11/18/16 1325 Signed Impressions: Service Date/Time: November 14:03 - CONCLUSION: No acute cardiopulmonary process. Vazquez Link MD PE at Discharge GENERAL: This is a well-nourished, well-developed patient, in no apparent distress. CARDIOVASCULAR: Regular rate and regular rhythm without murmurs, gallops, or rubs. RESPIRATORY: Clear to auscultation. Breath sounds equal bilaterally. No wheezes , rales, or rhonchi. GASTROINTESTINAL: Abdomen soft, non-tender, nondistended. Normal, active bowel sounds MUSCULOSKELETAL: Extremities without clubbing, cyanosis, or edema. NEURO: Alert & Oriented x4 to person, place, time, situation. Moves all ext x4 Hospital Course s/p Hypovolemic shock secondary to severe dehydration due to vomiting and diarrhea- now has resolved. Lactic acidemia-improving Hyperlipidemia Mild elevated troponin asymptomatic bradycardia continue IV fluid Troponin elevated to 0.10 in setting of hypovolemia and renal failure. He has no chest pain or SOB so doubtful that this represents true ischemia. d/w and plan for stress test tomorrow. stop hydrocortisone . for stress test today. Vomiting and diarrhea - likely gastroenteritis, ?secondary to foodborne illness - resolved Zofran as needed for nausea CT abdomen/pelvis wo contrast: Mildly nonspecific, nonobstructive bowel gas pattern which may represent a mild ileus. Stable small cyst in the right lobe of the liver. The gallbladder appears unremarkable. Patient and stated that he had EGD/colonoscopy approx 6 months ago which were normal. GI consulted and cleared for discharge. continue PPI Acute kidney injury- improved on IV hydration. Leukocytosis -likely due to dehydration- has resolved cultures negative-dc'ed Abx. Urticaria, with h/o viral induced urticaria benadryl as needed ENDO: Acute Mild hyperglycemia, likely secondary to acute illness. Low-dose insulin sliding scale if glucose >185. PROPH: SCDs for DVT prophylaxis. on PPI Pt Condition on Discharge: Good Discharge Disposition: Discharge Home Discharge Time: <= 30 minutes Discharge Instructions DIET: Follow Instructions for: Heart Healthy Diet Activities you can perform: Regular-No Restrictions Follow up Referrals: Gastroenterology PCP Follow-up Continued Medications: Atorvastatin (Atorvastatin) 80 Mg Tab 80 MG PO HS Cholesterol Management #30 Ref 0 TAB Pantoprazole (Pantoprazole) 40 Mg Tab 40 MG PO DAILY Reflux #30 Ref 0 TAB Luana Link MD Nov 21, 2016 11:28
[2016-11-21] MEDS ORDERED: REGADENOSON INJ 0.4 MG/5 ML SYR ONE (13:06)
--- NOTE | 2016-11-21 14:42 | RADRPT ---
EXAM DATE/TIME: 11/21/2016 12:26 [facility] COMPARISON: No previous studies available for comparison. INDICATIONS : Mid chest pain with vomiting for one day. Near syncope. Coronary artery disease. Myocardial infarctio n. DOSE: 30.0 mCi Tc99m Myoview at stress. 10.0 mCi Tc99m Myoview at rest. 0.4 mg Lexiscan STRESS SYMPTOMS: Shortness of breath. EJECTION FRACTION: 68% MEDICAL HISTORY : Gastroesophageal reflux disease. Carcinoma, basal cell. SURGICAL HISTORY : Umbilical hernia repair. Coronary artery stent. ENCOUNTER: Initial ACUITY: 1 day PAIN SCALE: 2/10 LOCATION: chest TECHNIQUE: The patient underwent pharmacologic stress with infusion of prescribed dose. Continuous ECG tracing was monitored during stress. Gated SPECT imaging was performed after stress and conventional SPECT i maging was performed at rest. The examination was performed on a SPECT/CT scanner, both attenuation and non-corrected datasets were reviewed. FINDINGS: DISTRIBUTION: The maximum perfused segment at stress is in the lateral wall. PERFUSION STUDY: The pattern of perfusion at stress is within normal limits. GATED STUDY: There is intact wall motion and thickening without hypokinetic or dyskinetic segments. CONCLUSION: No reversible perfusion defects. No focal wall motion abnormalities. Left ventricular ejection fracti on within normal limits. RISK CATEGORY: 1- Low Risk. Landry Hernandez MD on November 21, 2016 at 14:40 Board Certified Radiologist. This report was verified electronically.
[2016-11-21 16:30] VITALS: BP 142/87; PULSE 51; RESP 17; TEMP 95.9; O2SAT 97
== END 2016-11-21 17:23 | disposition home or self-care (01) | DRG 640 ==
LOC: PHED 13:07 → PHEDA 14:58 → HIME 17:40 → N06B 11-20 10:28
PROVIDERS: ADMIT Internal Medicine; ATTEND Internal Medicine
DX: E86.0 Dehydration (principal); R57.1 Hypovolemic shock; A05.9 Bacterial foodborne intoxication, unspecified; N17.9 Acute kidney failure, unspecified; E87.2 Acidosis; K56.7 Ileus, unspecified; L50.1 Idiopathic urticaria; K21.9 Gastro-esophageal reflux disease without esophagitis; R73.9 Hyperglycemia, unspecified; R74.8 Abnormal levels of other serum enzymes; R00.1 Bradycardia, unspecified; I25.10 Atherosclerotic heart disease of native coronary artery without angina pectoris; Z95.5 Presence of coronary angioplasty implant and graft; Z79.82 Long term (current) use of aspirin; Z85.820 Personal history of malignant melanoma of skin; E78.5 Hyperlipidemia, unspecified; Z85.828 Personal history of other malignant neoplasm of skin; Z23 Encounter for immunization
CPT/HCPCS: 71010; 74176; 78452; 80048; 80053; 81001; 82550; 82552; 82570; 83605; 83690; 83735; 84100; 84300; 84484; 85014; 85018; 85025; 86850; 86900; 86901; 87040; 87086; 87641; 87804; 90471; 90472; 90686; 90732; 93005; 93017; 93306; 94640; 94664; 96361; 96374; 96375; A9502; C9113; G0008; G0009; J0610; J0696; J1200; J1720; J2405; J2785; J7030; J7120; Q2038

== ENCOUNTER → 2017-04-12 | Outpatient (CLI) | payer OTHER ==
[~2017-04-12] MED LIST changes: -ASPI81 PO; +ATOR1TAB18 PO; -ATOR80TA41 PO; -CARV3.125 PO; -GLUC750T22 PO; -LORTA5 PO; -PANT40IN3 PO; +PANT40TA3 PO; -VITA100017 PO; -ZOFR4TAB3 SL
[2017-04-12 07:11] LABS: HEMATOCRIT 40.8 % (39.0-51.0); MEAN CELL VOLUME 88.4 FL (80.0-100.0); MEAN CORPUSCULAR HEMOGLOBIN 30.8 PG (27.0-34.0); MEAN CORPUSCULAR HGB CONC 34.8 % (32.0-36.0); PLATELET COUNT 151 TH/MM3 (150-450); RED BLOOD COUNT 4.61 MIL/MM3 (4.50-5.90); RED CELL DISTRIBUTION WIDTH 12.9 % (11.6-17.2); REVIEW FLAG FINAL; WHITE BLOOD COUNT 5.2 TH/MM3 (4.0-11.0)
[2017-04-12 07:40] LABS: ALT (GPT) 38 U/L (12-78)
[2017-04-12 07:49] LABS: ALKALINE PHOSPHATASE 43 U/L (45-117); HDL CHOLESTEROL 49.2 MG/DL (40.0-60.0); LDL CHOLESTEROL 76 MG/DL (0-99); TOTAL BILIRUBIN ADULT 0.7 MG/DL (0.2-1.0)
[2017-04-12 08:15] LABS: ANION GAP 5 MEQ/L (5-15); AST (GOT) 31 U/L (15-37); BICARBONATE 27.8 MEQ/L (21.0-32.0); BLOOD UREA NITROGEN 18 MG/DL (7-18); CHLORIDE 107 MEQ/L (98-107); GLOMERULAR FILTRATION RATE 65 ML/MIN (>89); GLUCOSE,FASTING 96 MG/DL (74-99); POTASSIUM 4.6 MEQ/L (3.5-5.1); SODIUM (NA) 140 MEQ/L (136-145)
== END ==
LOC: CLAB 06:52
PROVIDERS: ATTEND Family Medicine
DX: Z00.00 Encounter for general adult medical examination without abnormal findings (principal); Z12.5 Encounter for screening for malignant neoplasm of prostate
CPT/HCPCS: 36415; 80053; 80061; 84153; 84443; 85027

== ENCOUNTER → 2017-10-17 | Outpatient (CLI) | payer OTHER ==
[~2017-10-17] MED LIST changes: -ATOR1TAB18 PO; +ATOR80TA45 PO
[2017-10-17 10:39] LABS: ALBUMIN 3.9 GM/DL (3.4-5.0); ALT (GPT) 42 U/L (12-78); AST (GOT) 24 U/L (15-37); BICARBONATE 29.8 MEQ/L (21.0-32.0); BLOOD UREA NITROGEN 19 MG/DL (7-18); CALCIUM 8.6 MG/DL (8.5-10.1); CHLORIDE 106 MEQ/L (98-107); CHOLESTEROL 162 MG/DL (120-200); CREATININE 0.98 MG/DL (0.60-1.30); GLOMERULAR FILTRATION RATE 77 ML/MIN (>89); GLUCOSE,FASTING 90 MG/DL (74-99); SODIUM (NA) 141 MEQ/L (136-145); TRIGLYCERIDES 53 MG/DL (42-150)
[2017-10-17 10:42] LABS: ALKALINE PHOSPHATASE 41 U/L (45-117); CHOLESTEROL/ HDL RATIO 2.74 RATIO; LDL CHOLESTEROL 92 MG/DL (0-99); TOTAL BILIRUBIN ADULT 0.9 MG/DL (0.2-1.0); TOTAL PROTEIN 7.4 GM/DL (6.4-8.2)
== END ==
LOC: CLAB 09:51
PROVIDERS: ATTEND Family Medicine
DX: E78.2 Mixed hyperlipidemia (principal)
CPT/HCPCS: 36415; 80053; 80061